=== PATIENT | female | born 1985 | race Caucasian/White ===

== ENCOUNTER 2020-03-06 16:12 | Emergency (ER) | payer OTHER, SELFPAY ==
--- NOTE | ~2020-03-06 | CT_ITS ---
EXAMINATION: CT abdomen pelvis w con DATE: 03/06/2020 17:40 INDICATION: Generalized abdominal pain. Nausea, vomiting and diarrhea. History of Crohn's. TECHNIQUE: Computed tomography (CT) of the abdomen and pelvis was performed with 100 cc Omnipaque 350 intravenous contrast. The dose-length product was 1164.66 mGy-cm. Automated exposure control and ite rative reconstruction technique were employed. COMPARISON: None. FINDINGS: Lung bases unremarkable. Heart size normal. No significant pleural or pericardial effusion. Status post cholecystectomy. The liver, spleen, pancreas, adrenal glands are unremarkable. There are nonobstructing bilateral renal stones. No hydronephrosis. Nonobstructive bowel gas pattern. No abnorm al pelvic masses or fluid collections. There is a urachal remnant of the bladder. Uterus is anteverte d. No significant vascular abnormality. No lymphadenopathy. There are surgical clips at the cecum, po ssibly from previous appendectomy. IMPRESSION: 1. No acute abdominal abnormality. 2: Nonobstructing bilateral nephrolithiasis. Reviewed, dictated and finalized at location A.
[2020-03-06 16:12] VITALS: BP 154/99; PULSE 90; RESP 18; TEMP 36.9; O2SAT 98
--- NOTE | 2020-03-06 16:29 | PC.NURSE ---
HOME MEDICATION LIST IS PATIENTS ESTIMATED DOSAGES
--- NOTE | 2020-03-06 16:34 | ED.ABDPAIN ---
HPI - Abdominal Pain General Chief Complaint: Nausea/Vomiting/Diarrhea Stated Complaint: abd pain, throwing up Time Seen by Provider: 03/06/20 16:34 Source: patient Mode of arrival: ambulatory Limitations: no limitations History of Present Illness HPI narrative: 34-year-old woman with a history of Crohn's disease comes in today complaining of right lower quadrant pain which has been present for the last week or 2. Patient states that in the last week she has been having intermittent vomiting and been able to keep stuff down only intermittently. Pain has gotten worse. She states that she is having bloody diarrhea and has rectal pain. She states that she has had chills and nausea. She denies dysuria, hematuria, fever, rash, syncope, in cough and cold symptoms. Her last exacerbation was approximately 6 months ago. She has been on ustekinumab and azathioprine for approximately 8 months. She states that she has been out of her azathioprine for the last 3 days. Her doctors are in the [place] area ( PCP and GI) and she has been contacting them for med refills. She does not a local doctor yet. MD elicited complaint: abdominal pain Onset (ago): week(s) (1-2) Pain Consistency: constant Location: RLQ Severity: severe Quality: sharp Radiation: none Migration to: no migration Exacerbating factors: eating and movement Relieving factors: nothing Associated symptoms: nausea, vomiting, diarrhea, chills and hematochezia Related Data Home Medications Medication Instructions Recorded Confirmed amlodipine 10 mg PO DAILY 03/06/20 03/06/20 azathioprine 50 mg PO DAILY 03/06/20 03/06/20 lisinopril 10 mg PO DAILY 03/06/20 03/06/20 omeprazole 40 mg PO DAILY 03/06/20 03/06/20 ustekinumab [Stelara] 45 mg SUBCUT ONCE 03/06/20 03/06/20 venlafaxine 150 mg PO DAILY 03/06/20 03/06/20 Allergies Allergy/AdvReac Type Severity Reaction Status Date / Time No Known Allergies Allergy Verified 03/06/20 16:25 Review of Systems Constitutional: Constitutional: Reports chills and Denies fever(s) Eyes: Eyes: Denies change in vision and Denies photophobia ENT: Denies dysphagia, Denies nasal congestion and Denies sore throat Cardiovascular: Cardiovascular: Denies chest pain and Denies radiating jaw, neck or arm pain Respiratory: Respiratory: Denies cough, Denies dyspnea and Denies wheezing Gastrointestinal: Gastrointestinal: Reports abdominal pain, Reports diarrhea, Reports nausea and Reports vomiting Genitourinary: Genitourinary: Denies hematuria, Denies nocturia and Denies dysuria Musculoskeletal: Musculoskeletal: Denies arthralgias and Denies joint swelling Integumentary/Breasts: Skin/Breast: Denies pruritus, Denies erythema and Denies rash Neurologic: Denies vertigo, Denies dizziness and Denies syncope Hematologic/Lymphatic: Hematologic/Lymphatic: Denies easy bleeding and Denies easy bruising Allergic/Immunologic: Allergic/Immunologic: Denies lip swelling, Denies throat swelling and Denies tongue swelling PMFSH Past Medical History Medical History COPD (chronic obstructive pulmonary disease) Crohn's disease Depression GERD (gastroesophageal reflux disease) Hemorrhoids PCOS (polycystic ovarian syndrome) Surgical History Surgical History H/O hemorrhoidectomy x2 H/O laparoscopy History of D&C S/P small bowel resection Social History Social History Smoking status: Current every day smoker Substance use: current Substance use type: marijuana Living arrangements: with family Exam Const: General: healthy appearing and alert Orientation/consciousness: patient oriented x3 Limitations: no limitations Other: moderate acute distress HENMT: Head: normal to inspection Ears: external ears normal, TM's normal bilaterally and EAC's normal Mouth: Yes moist m
[2020-03-06] MEDS: SODIUM CHLORIDE 0.9% IV 1,000 ML 999 ML IV CONT (16:55)
[2020-03-06] MEDS: HYDROmorphone HCL INJ (*CRX) 2 MG/ML VIAL 0.5 MG IV PUSH (16:59)
[2020-03-06] MEDS: ONDANSETRON INJ 4 MG/2 ML VIAL IV PUSH (17:00)
[2020-03-06 17:05] LABS: Basophils Absolute Auto 0.01 K/mm3 (0.00-0.10); Basophils Percent Auto 0.2 % (0.0-1.0); Eosinophils Percent Auto 1.8 % (1.0-6.0); Hematocrit 31.9 % (35.0-49.0); Hemoglobin 10.8 g/dL (12.0-15.0); Immature Granulocyte Absolute 0.02 K/mm3 (0.00-0.00); Immature Granulocyte Percent A 0.4 % (0.0-0.0); Lymphocytes Absolute Auto 0.88 K/mm3 (1.10-4.50); Lymphocytes Percent Auto 15.4 % (18.0-42.0); Mean Corpuscular HGB Conc 33.9 g/dL (32.0-36.0); Mean Corpuscular Hemoglobin 29.3 pg (27.0-31.0); Mean Corpuscular Volume 86.7 fL (78.0-102.0); Mean Platelet Volume 9.2 fl (9.2-11.8); Monocytes Absolute Auto 0.59 K/mm3 (0.10-0.90); Monocytes Percent Auto 10.3 % (2.0-11.0); Neutrophils Absolute Auto 4.1 K/mm3 (1.7-7.2); Neutrophils Percent Auto 71.9 % (50.0-70.0); Platelet Count Result 287 K/mm3 (150-420); Red Blood Count 3.68 M/mm3 (4.20-5.40); Red Cell Distribution Width 14.1 % (11.6-14.4); White Blood Count 5.7 K/mm3 (4.8-10.8)
[2020-03-06 17:06] LABS: Add Urine Microscopic? NO; Appearance Urine Clear (Clear); Bilirubin Urine Negative (Negative); Blood Urine Negative (Negative); Color Urine Yellow (Yellow); Glucose Urine UA Negative (Negative); Ketones Urine Negative (Negative); Leukocyte Esterase Ur Negative LEU/UL (Negative); Nitrate Urine Negative (Negative); Protein Urine Negative (Negative); Specific Grav Ur 1.025 (1.010-1.020); Urobilinogen Urine 0.2 mg/dL (0.2-1.0)
[2020-03-06 17:16] LABS: Pregnancy On Board Control Positive; Urine Pregnancy Test Negative
[2020-03-06 17:17] LABS: Alanine Aminotransferase 24 U/L (14-59); Albumin Level 3.8 g/dL (3.4-5.0); Alkaline Phosphatase 128 U/L (46-116); Anion Gap 11 mmol/L (8-16); Aspartate Amino Transferase 10 U/L (15-37); Bilirubin,Total 0.7 mg/dL (0.00-1.00); Blood Urea Nitrogen 9 mg/dL (7-18); Calcium 9.2 mg/dL (8.5-10.1); Carbon Dioxide 24 mmol/L (21-32); Chloride 105 mmol/L (98-108); Estimated CRCL calculation 87 ml/min; Estimated Glomerular Filt Rate > 60; Glucose 101 mg/dL (70-99); Lipase 124 U/L (73-393); Osmolality Calculated 288 mOsm/kg (285-295); Potassium 3.8 mmol/L (3.5-5.1); Sodium 140 mmol/L (136-145); Total Protein 7.5 g/dL (6.4-8.2)
[2020-03-06 17:22] LABS: Lactic Acid Reflex 1.2 mmol/L (0.4-2.0)
[2020-03-06 17:58] LABS: CRP < 0.5 mg/dL (0.0-0.9)
[2020-03-06] MEDS: methylPREDNISolone SOD SUCC 40 MG VIAL 80 MG IV PUSH (18:12)
[2020-03-06 18:19] VITALS: BP 146/88; PULSE 77; RESP 14; O2SAT 100
== END 2020-03-06 18:30 | disposition home or self-care (01) ==
PROVIDERS: Emergency Provider Emergency Medicine
DX: K50.90 Crohn's disease, unspecified, without complications (principal)
CPT/HCPCS: 36415; 74177; 80053; 81003; 81025; 83605; 83690; 85025; 86140; 87040; 96361; 96374; 96375; 99283; 99284; J1170; J2405; J2920; J7030; Q9965

== ENCOUNTER 2020-04-23 14:15 | Emergency (ER) | payer OTHER, SELFPAY ==
[2020-04-23 14:24] VITALS: BP 138/97; PULSE 65; RESP 14; TEMP 36.4; O2SAT 100
--- NOTE | 2020-04-23 14:27 | ED.PSYCH ---
HPI - Psych General Chief Complaint: Psychiatric Symptoms Stated Complaint: needs elval per dr Source: patient and RN notes reviewed Mode of arrival: ambulatory Limitations: no limitations History of Present Illness HPI Narrative: Patient sent over from primary care physician for suicidal ideation. MD complaint: suicidal ideation and feels depressed Onset (ago): month(s) (2) Duration: intermittent and getting worse History of same: Yes Relieving factors: none Exacerbating factors: none Context: significant life stressor Associated psychiatric symptoms: depression and suicidal ideation Associated symptoms: denies other symptoms Treatments prior to arrival: none If self harm: admits thoughts of self harm Related Data Home Medications Medication Instructions Recorded Confirmed lisinopril 10 mg PO DAILY 03/06/20 04/23/20 ustekinumab [Stelara] 45 mg SUBCUT ONCE 03/06/20 04/23/20 venlafaxine 150 mg PO DAILY 03/06/20 04/23/20 famotidine 40 mg PO DAILY 04/23/20 04/23/20 verapamil 120 mg PO HS 04/23/20 04/23/20 Allergies Allergy/AdvReac Type Severity Reaction Status Date / Time No Known Allergies Allergy Verified 03/06/20 16:25 Review of Systems Review of Systems: All systems reviewed & are unremarkable except as noted in HPI and below PMFSH Past Medical History Medical History COPD (chronic obstructive pulmonary disease) Crohn's disease Depression GERD (gastroesophageal reflux disease) Hemorrhoids PCOS (polycystic ovarian syndrome) Surgical History Surgical History H/O hemorrhoidectomy x2 H/O laparoscopy History of D&C S/P small bowel resection Social History Social History Smoking status: Current every day smoker Substance use: current Substance use type: marijuana Exam Const: General: healthy appearing and no acute distress Nutritional Appearance: well nourished and obese Orientation/consciousness: patient oriented x3 Other: Female nurse in room during examination. HENMT: Head: normal to inspection Ears: external ears normal Eyes: Conjunctivae: conjunctivae normal Pupils: Equal, round and reactive pupils present EOM: EOMs intact bilaterally Neck: Neck: normal visual inspection Resp: Effort & Inspection: normal respiratory effort Auscultation: clear to auscultation bilaterally Cardio: Rate: regular rate Rhythm: regular rhythm GI: GI Palp: Yes Soft to palpation and No Tenderness to palpation present (GI) Auscultation: normal bowel sounds Back/Spine/Pelvis: Cervical Spine: cervical ROM normal Thoracic/Lumbar Spine: thoraco-lumbar ROM normal Skin: General skin exam: normal color Rashes: no rashes Neuro: General: patient oriented x3, moves all extremities and no focal motor deficits Speech: normal speech Gait exam (Neuro): Normal gait present Extrem: General: normal to inspection and no clubbing, cyanosis or edema Psych: Appearance: grossly normal and well kempt Affect: Sad affect present Thought content: Yes Normal thought content present Course Course Emergency Course: Patient is medically cleared for transfer and admission to a psychiatric facility. Vital Signs Vital signs: Vital Signs Temperature 36.4 C L 04/23/20 14:24 Pulse Rate 65 04/23/20 14:24 Respiratory Rate 14 04/23/20 14:24 Blood Pressure 138/97 H 04/23/20 14:24 Pulse Oximetry 100 04/23/20 14:24 Temperature 36.4 C L 04/23/20 14:24 Pulse Rate 77 04/23/20 16:56 Respiratory Rate 14 04/23/20 16:56 Blood Pressure 122/80 04/23/20 16:56 Pulse Oximetry 99 04/23/20 16:56 MDM - Psych Lab Data Attestation: I reviewed the patient's lab results. Result diagrams: 04/23/20 14:44 04/23/20 14:44 Labs: Lab Results 04/23/20 04/23/20 04/23/20 Range/Units 14:44 14:44 15:50 WBC 7.2 (4.8-
[2020-04-23 14:50] LABS: Basophils Absolute Auto 0.01 K/mm3 (0.00-0.10); Basophils Percent Auto 0.1 % (0.0-1.0); Eosinophils Absolute Auto 0.06 K/mm3 (0.02-0.50); Eosinophils Percent Auto 0.8 % (1.0-6.0); Hematocrit 33.2 % (35.0-49.0); Hemoglobin 10.8 g/dL (12.0-15.0); Immature Granulocyte Absolute 0.05 K/mm3 (0.00-0.00); Immature Granulocyte Percent A 0.7 % (0.0-0.0); Lymphocytes Percent Auto 15.4 % (18.0-42.0); Mean Corpuscular HGB Conc 32.5 g/dL (32.0-36.0); Mean Corpuscular Hemoglobin 27.5 pg (27.0-31.0); Mean Corpuscular Volume 84.5 fL (78.0-102.0); Mean Platelet Volume 9.3 fl (9.2-11.8); Monocytes Absolute Auto 0.81 K/mm3 (0.10-0.90); Monocytes Percent Auto 11.3 % (2.0-11.0); Neutrophils Absolute Auto 5.1 K/mm3 (1.7-7.2); Neutrophils Percent Auto 71.7 % (50.0-70.0); Platelet Count Result 337 K/mm3 (150-420); Red Blood Count 3.93 M/mm3 (4.20-5.40); Red Cell Distribution Width 13.8 % (11.6-14.4); White Blood Count 7.2 K/mm3 (4.8-10.8)
--- NOTE | 2020-04-23 15:11 | ECG_ITS ---
Measurements Intervals [place] Rate: 62 P: 29 OR: 120 QRS: 34 QRSD: 89 T: 17 QT: 457 QTc: 466 Interpretive Statements SINUS RHYTHM EARLY PRECORDIAL R/S TRANSITION NONSPECIFIC T-WAVE ABNORMALITY- INFERIOR LEADS BORDERLINE ECG Electronically Signed On 04-23-2020 16:02:13 CROP SCOUT by Miguel Redd D.O.
[2020-04-23 15:15] LABS: Acetaminophen 2 ug/mL (10-30); Alanine Aminotransferase 21 U/L (14-59); Albumin Level 3.8 g/dL (3.4-5.0); Alkaline Phosphatase 115 U/L (46-116); Anion Gap 11 mmol/L (8-16); Aspartate Amino Transferase 11 U/L (15-37); Bilirubin,Total 0.5 mg/dL (0.00-1.00); Blood Urea Nitrogen 10 mg/dL (7-18); Calcium 9.1 mg/dL (8.5-10.1); Carbon Dioxide 26 mmol/L (21-32); Chloride 103 mmol/L (98-108); Estimated CRCL calculation 78 ml/min; Estimated Glomerular Filt Rate > 60; Ethanol < 3 mg/dL (0-6); Glucose 88 mg/dL (70-99); Osmolality Calculated 288 mOsm/kg (285-295); Potassium 3.2 mmol/L (3.5-5.1); Salicylate 10.5 mg/dL (2.8-20.0); Sodium 140 mmol/L (136-145); Thyroid Stimulating Hormone 0.62 uIU/mL (0.36-3.74); Total Protein 8.1 g/dL (6.4-8.2)
--- NOTE | 2020-04-23 15:19 | PC.NURSE ---
1500 [facility], CONTACTED AT THIS TIME
[2020-04-23] MEDS: POTASSIUM BICARBONATE 25 MEQ TABEF 50 MEQ PO (15:49)
[2020-04-23 16:08] LABS: Add Urine Microscopic? NO; Appearance Urine Clear (Clear); Bilirubin Urine Negative (Negative); Blood Urine Negative (Negative); Color Urine Yellow (Yellow); Glucose Urine UA Negative (Negative); Ketones Urine Negative (Negative); Leukocyte Esterase Ur Negative LEU/UL (Negative); Nitrate Urine Negative (Negative); Protein Urine Negative (Negative); Urobilinogen Urine 0.2 mg/dL (0.2-1.0)
[2020-04-23 16:09] LABS: Amphetamine Screen Urine Negative (Negative); Barbiturate Screen Urine Negative (Negative); Benzodiazepines Screen Urine Negative (Negative); Cannabinoid Screen Urine Positive (Negative); Cocaine Screen Urine Negative (Negative); Methadone Screen Urine Negative (Negative); Opiate Screen Urine Positive (Negative); Phencyclidine Screen Urine Negative (Negative)
[2020-04-23 16:56] VITALS: BP 122/80; PULSE 77; RESP 14; O2SAT 99
--- NOTE | 2020-04-23 22:29 | PC.NURSE ---
REPORT PROVIDED TO SANDER KEARNEY
--- NOTE | 2020-04-23 22:42 | PC.NURSE ---
Assumed care of pt at this time. 1:1 staff sitter at bedside. Pt resting comfortably in bed.
[2020-04-23 23:14] LABS: SARS-CoV-2 Ag Negative (Negative)
--- NOTE | 2020-04-24 00:14 | PC.NURSE ---
0014-Patient is resting at this time, patient is in the direct view of sitter.
[2020-04-24 00:34] VITALS: BP 139/95; PULSE 88; RESP 18; TEMP 37.2; O2SAT 99
--- NOTE | 2020-04-24 03:02 | PC.NURSE ---
Report received, pt. sleeping, sitter at side and monitor on in view.
--- NOTE | 2020-04-24 04:15 | PC.NURSE ---
Sal from the [facility] called back for nurse report. Report given and he stated will address intake Dr. at 0700 and call back c bed if accepted. Pt. sleeping at this time and in view of nurses station c monitor on.
[2020-04-24 05:19] VITALS: BP 142/97; PULSE 66; RESP 16; TEMP 36.8; O2SAT 99
--- NOTE | 2020-04-24 05:59 | PC.NURSE ---
Pt. sleeping, continuing to monitor c close observation.
[2020-04-24 11:33] VITALS: RESP 18
== END 2020-04-24 11:36 ==
PROVIDERS: Emergency Provider Emergency Medicine; PCP Internal Medicine
DX: F33.2 Major depressive disorder, recurrent severe without psychotic features (principal)
CPT/HCPCS: 36415; 80053; 80307; 81003; 84443; 85025; 87426; 93005; 99285; A9270

== ENCOUNTER 2020-06-13 08:06 | Outpatient (CLI) | payer OTHER, SELFPAY ==
--- NOTE | ~2020-06-13 | CT_ITS ---
EXAMINATION: CT abdomen pelvis w con DATE: 06/13/2020 08:59 INDICATION: Right lower quadrant abdominal, rectal pain. History of Crohn's disease. TECHNIQUE: Computed tomography (CT) of the abdomen and pelvis was performed with 100 cc Omnipaque 350 intravenous contrast. Automated exposure control and iterative reconstruction technique were employe d. Exam dose: 1056.29 mGy-cm total exam DLP. COMPARISON: 03/06/2020 CT abdomen pelvis FINDINGS: The lung bases are clear of infiltrate or consolidation. Normal heart size. No pericardial or pleural effusion. Status post cholecystectomy. No bile duct or pancreatic duct dilatation. No hepatic or pancreatic spa ce-occupying mass lesion or pancreatic calcification. Normal splenic size. Normal morphology of the adrenal glands. 3 mm nonobstructing mid right renal calculus. 3 mm nonobstructing mid left renal calculus. 4 mm probable cyst of the lower pole of the left kidney. No suspicious space-occupying mass lesion of either kidney is evident. No ureteral calculus or hydroureteronephrosis. Normal caliber of the abdominal aorta. No intraperitoneal or retroperitoneal or pelvic mass lesion or adenopathy or ascites. Thin-walled 2.5 cm left ovarian cyst. The uterus and adnexal areas are otherwise unremarkable. The ur inary bladder appears normal. No bowel obstruction, bowel wall thickening, pneumatosis or intraperitoneal free air. Status post etelvina endectomy. Mild likely chronic compression fracture of the superior vertebral endplate of T8. No suspicious osteoblastic or osteolytic lesions. IMPRESSION: Status post cholecystectomy Status post appendectomy 3 mm nonobstructing calculus of mid right kidney and mid left kidney 2.5 cm left ovarian cyst Reviewed, dictated and finalized at Location [facility]. Reviewed, dictated and finalized at location A. RNET NETWORK SPECIALIST
[2020-06-13 08:26] LABS: Estimated Glomerular Filt Rate > 60
== END 2020-06-13 08:07 | disposition home or self-care (01) ==
PROVIDERS: PCP Internal Medicine; Visit Provider Internal Medicine
DX: K50.90 Crohn's disease, unspecified, without complications (principal); R10.9 Unspecified abdominal pain
CPT/HCPCS: 36415; 74177; Q9967

== ENCOUNTER 2021-03-22 09:46 | Outpatient (CLI) | payer MEDICARE, MEDICAID, SELFPAY ==
--- NOTE | ~2021-03-22 | XR_ITS ---
XR elbow LT min 3V 03/22/2021 10:16 INDICATION: Left elbow pain PROCEDURE: 4 views left elbow COMPARISON: No prior studies for comparison. FINDINGS: Fracture, dislocation or subluxation is not identified. No significant joint effusion. The soft tissues appear within normal limits. No foreign bodies are identified. IMPRESSION: 1: NO ACUTE BONE OR JOINT ABNORMALITY IDENTIFIED. Reviewed, dictated and finalized at location A. GE MAKER
--- NOTE | ~2021-03-22 | XR_ITS ---
XR_[id number] 03/22/2021 10:16 Indication: Neck pain. Left forearm numbness. Procedure: 4 views cervical spine Comparison: No prior studies for comparison. Findings: Vertebral body heights are maintained. No significant disc narrowing. No prevertebral soft tissue swelling. Odontoid process within normal limits. Lateral masses are normally aligned. Lung api tricia are normal. Impression: 1: No significant abnormality of the cervical spine. Reviewed, dictated and finalized at location A. NG CUTTING MACHINE OPERATOR Impression: 1: No significant abnormality of the cervical spine.
== END 2021-03-22 09:47 | disposition home or self-care (01) ==
LOC: CHSIMG 09:48
PROVIDERS: PCP Internal Medicine; Visit Provider Internal Medicine
DX: R20.0 Anesthesia of skin (principal); M25.522 Pain in left elbow
CPT/HCPCS: 72040; 73080

== ENCOUNTER 2021-07-23 12:15 | Outpatient (CLI) | payer MEDICARE, SELFPAY ==
--- NOTE | ~2021-07-23 | XR_ITS ---
EXAMINATION: XR chest 2V DATE: 07/23/2021 12:37 INDICATION: Dorsal breath. Tobacco use. TECHNIQUE: PA and lateral views of the chest were obtained. COMPARISON: None FINDINGS: The lungs are clear with no focal airspace opacities, pulmonary edema, pleural effusion or pneumothor ax. The cardiomediastinal silhouette is normal. Mild thoracic spondylosis. Cholecystectomy clips in t he upper abdomen. IMPRESSION: 1. No acute cardiopulmonary disease. Reviewed, dictated and finalized at location A.
[2021-07-23 12:33] LABS: Basophils Absolute Auto 0.02 K/mm3 (0.00-0.10); Basophils Percent Auto 0.3 % (0.0-1.0); Eosinophils Absolute Auto 0.18 K/mm3 (0.02-0.50); Eosinophils Percent Auto 3.1 % (1.0-6.0); Hemoglobin 11.6 g/dL (12.0-15.0); Immature Granulocyte Absolute 0.02 K/mm3 (0.00-0.00); Immature Granulocyte Percent A 0.3 % (0.0-0.0); Lymphocytes Absolute Auto 1.15 K/mm3 (1.10-4.50); Lymphocytes Percent Auto 19.5 % (18.0-42.0); Mean Corpuscular HGB Conc 33.1 g/dL (32.0-36.0); Mean Corpuscular Hemoglobin 28.4 pg (27.0-31.0); Mean Corpuscular Volume 85.6 fL (78.0-102.0); Mean Platelet Volume 9.3 fl (9.2-11.8); Monocytes Absolute Auto 0.41 K/mm3 (0.10-0.90); Neutrophils Absolute Auto 4.1 K/mm3 (1.7-7.2); Neutrophils Percent Auto 69.8 % (50.0-70.0); Platelet Count Result 309 K/mm3 (150-420); Red Blood Count 4.09 M/mm3 (4.20-5.40); Red Cell Distribution Width 14.9 % (11.6-14.4); White Blood Count 5.9 K/mm3 (4.8-10.8)
[2021-07-23 12:44] LABS: D Dimer 0.41 mg/L (0.19-0.50)
[2021-07-23 13:14] LABS: Alanine Aminotransferase 25 U/L (14-59); Albumin Level 3.4 g/dL (3.4-5.0); Alkaline Phosphatase 99 U/L (46-116); Anion Gap 10 mmol/L (8-16); Aspartate Amino Transferase 18 U/L (15-37); Bilirubin,Total 0.7 mg/dL (0.00-1.00); Blood Urea Nitrogen 10 mg/dL (7-18); Calcium 8.6 mg/dL (8.5-10.1); Carbon Dioxide 25 mmol/L (21-32); Chloride 105 mmol/L (98-108); Creatine Kinase 41 U/L (26-192); Estimated Glomerular Filt Rate > 60; Glucose 83 mg/dL (70-99); Osmolality Calculated 288 mOsm/kg (285-295); Potassium 3.7 mmol/L (3.5-5.1); Sodium 140 mmol/L (136-145); Thyroid Stimulating Hormone 2.12 uIU/mL (0.36-3.74); Total Protein 7.1 g/dL (6.4-8.2); Troponin I 5.8 ng/L (0.00-60.4)
[2021-07-23 14:53] LABS: Ferritin 27 ng/mL (8-252); Iron 69 ug/dL (50-170); Percent Iron Saturation 16 % (12-57)
== END 2021-07-23 12:16 | disposition home or self-care (01) ==
LOC: CHSLAB 12:19
PROVIDERS: PCP Internal Medicine; Visit Provider Nurse Practitioner Family
DX: R06.02 Shortness of breath (principal); F17.200 Nicotine dependence, unspecified, uncomplicated; D64.9 Anemia, unspecified
CPT/HCPCS: 36415; 71046; 80053; 82550; 82553; 82728; 83540; 83550; 84443; 84484; 85025; 85380

== ENCOUNTER 2021-08-08 09:16 | Outpatient (CLI) | payer MEDICARE, MEDICAID, SELFPAY | END 2021-08-08 09:17 | disposition home or self-care (01) | LOC: CHSCARD 09:18 | PROVIDERS: PCP Internal Medicine; Visit Provider Nurse Practitioner Family | DX: R06.02 Shortness of breath (principal) | CPT/HCPCS: 94060; 94726; 94729 ==

== ENCOUNTER 2021-08-22 11:33 | Outpatient (CLI) | payer MEDICARE, MEDICAID, SELFPAY ==
--- NOTE | ~2021-08-22 | XR_ITS ---
EXAMINATION: XR foot LT min 3V DATE: 08/22/2021 12:02 INDICATION: Left foot pain and swelling TECHNIQUE: Dorsoplantar, lateral, and 2 oblique views of the left foot were obtained. COMPARISON: None. FINDINGS: There is no fracture, dislocation, or subluxation. A plantar calcaneal enthesophyte is note d. The bones, soft tissues, and joint spaces are otherwise normal. IMPRESSION: 1. No acute osseous abnormality. Reviewed, dictated and finalized at location A.
--- NOTE | ~2021-08-22 | US_ITS ---
EXAMINATION: US venous doppler LE EXAM DATE: 08/22/2021 14:45 INDICATION: elevated D Dimer/swelling lower extremity . TECHNIQUE: Multiple grayscale, color flow and Doppler images of the lower extremity deep venous syste ms bilaterally were obtained and reviewed. There is no prior study for comparison. FINDINGS: Right side: The right common femoral, femoral and profunda veins demonstrate normal color flow, respi ratory variation, augmentation and compressibility. Compressibility, color flow confirmed within the right popliteal, posterior tibial, peroneal, and greater saphenous veins. Left side: The left common femoral, femoral and profunda veins demonstrate normal color flow, respira tory variation, augmentation and compressibility. Compressibility, color flow confirmed within the l eft popliteal, posterior tibial, peroneal, and greater saphenous veins. IMPRESSION: No lower extremity deep venous thrombosis bilaterally. Reviewed, dictated and finalized at location B.
--- NOTE | ~2021-08-22 | XR_ITS ---
EXAMINATION: XR foot RT min 3V DATE: 08/22/2021 12:01 INDICATION: Right foot pain and swelling TECHNIQUE: Dorsoplantar, lateral, and 2 oblique views of the right foot were obtained. COMPARISON: None. FINDINGS: There is no fracture, dislocation, or subluxation. A plantar calcaneal enthesophyte is note d. The bones and joint spaces are otherwise normal. There is mild dorsal soft tissue swelling of the foot. IMPRESSION: 1. Mild soft tissue swelling of the foot without acute osseous abnormality. Reviewed, dictated and finalized at location A.
[2021-08-22 11:50] LABS: Basophils Absolute Auto 0.01 K/mm3 (0.00-0.10); Basophils Percent Auto 0.2 % (0.0-1.0); Eosinophils Absolute Auto 0.13 K/mm3 (0.02-0.50); Eosinophils Percent Auto 2.8 % (1.0-6.0); Hematocrit 31.5 % (35.0-49.0); Hemoglobin 10.5 g/dL (12.0-15.0); Immature Granulocyte Absolute 0.02 K/mm3 (0.00-0.00); Immature Granulocyte Percent A 0.4 % (0.0-0.0); Lymphocytes Absolute Auto 0.64 K/mm3 (1.10-4.50); Mean Corpuscular HGB Conc 33.3 g/dL (32.0-36.0); Mean Platelet Volume 9.4 fl (9.2-11.8); Monocytes Absolute Auto 0.44 K/mm3 (0.10-0.90); Monocytes Percent Auto 9.6 % (2.0-11.0); Neutrophils Absolute Auto 3.3 K/mm3 (1.7-7.2); Platelet Count Result 248 K/mm3 (150-420); Red Blood Count 3.62 M/mm3 (4.20-5.40); Red Cell Distribution Width 15.3 % (11.6-14.4); White Blood Count 4.6 K/mm3 (4.8-10.8)
[2021-08-22 11:52] LABS: Appearance Urine Clear (Clear); Bilirubin Urine Negative (Negative); Color Urine Light Yellow (Yellow); Glucose Urine UA Negative (Negative); Ketones Urine Negative (Negative); Leukocyte Esterase Ur Negative (Negative); Nitrate Urine Negative (Negative); Protein Urine Negative (Negative); Specific Grav Ur 1.015 (1.010-1.020); Urobilinogen Urine 0.2 mg/dL (0.2-1.0); pH Urine 5.5 (5.0-8.0)
[2021-08-22 11:58] LABS: Add Urine Microscopic? YES; Bacteria Urine 1+ /hpf; Blood Urine Trace-Intact (Negative); RBC Urine 0-2 /hpf (0-2); Squamous Epithelial Cell Urine Few /hpf (Few); WBC Urine None seen /hpf (0-3)
[2021-08-22 12:08] LABS: D Dimer 0.61 mg/L (0.19-0.50)
[2021-08-22 12:28] LABS: Alanine Aminotransferase 24 U/L (14-59); Albumin Level 3.1 g/dL (3.4-5.0); Alkaline Phosphatase 121 U/L (46-116); Anion Gap 7 mmol/L (8-16); Aspartate Amino Transferase 19 U/L (15-37); Bilirubin,Total 0.5 mg/dL (0.00-1.00); Blood Urea Nitrogen 10 mg/dL (7-18); CRP < 0.5 mg/dL (0.0-0.9); Calcium 8.4 mg/dL (8.5-10.1); Carbon Dioxide 29 mmol/L (21-32); Chloride 104 mmol/L (98-108); Estimated Glomerular Filt Rate > 60; Glucose 108 mg/dL (70-99); NT Pro B Type Natriuretic Pept 111 pg/mL (0-125); Osmolality Calculated 290 mOsm/kg (285-295); Potassium 4.3 mmol/L (3.5-5.1); Sodium 140 mmol/L (136-145); Total Protein 6.4 g/dL (6.4-8.2)
== END 2021-08-22 11:34 | disposition home or self-care (01) ==
PROVIDERS: PCP Internal Medicine; Visit Provider Internal Medicine
DX: M79.89 Other specified soft tissue disorders (principal); R79.1 Abnormal coagulation profile; R60.9 Edema, unspecified; R06.00 Dyspnea, unspecified; M79.673 Pain in unspecified foot
CPT/HCPCS: 36415; 73630; 80053; 81001; 83880; 85025; 85380; 86140; 93970

== ENCOUNTER 2025-02-28 13:18 | Emergency (ER) | payer MEDICARE, MEDICAID, SELFPAY ==
[2025-02-28] VITALS (15 sets, daily range): BP systolic 145–179; BP diastolic 101–144; PULSE 74–110; RESP 18–24; TEMP 36.2; O2SAT 96–100
--- NOTE | ~2025-02-28 | XR_ITS ---
Examination: XR chest 2V Clinical History: SOB Comparison: 07/23/2021 Technique: PA and Lateral Findings: Cardiomediastinal silhouette normal size and configuration. Lungs clear. No acute bony abnormality. IMPRESSION: 1. No acute cardiopulmonary findings. Reviewed, dictated and finalized at location R.
--- NOTE | 2025-02-28 13:25 | ED.SOB ---
HPI - SOB/Dyspnea General Chief Complaint: Shortness of Breath/Dyspnea Stated Complaint: shortness of breath ; STI exposure Time Seen by Provider: 02/28/25 13:24 Source: patient Mode of arrival: ambulatory Limitations: no limitations History of Present Illness HPI Narrative: Patient is a 39-year-old female homeless with shortness of breath and light vaginal blood on toilet paper with known STD exposure recently but unknown which disease. She is having chest pressure and tightness across the upper chest into the back more so regularly then just with this episode of illness. Patient has known COPD. She is off all her blood pressure medicine at this time with noncompliance. Patient has Crohn's disease. Her father at 40 with cardiomyopathy. MD elicited complaint: shortness of breath, cough, pain with inspiration and chest pain Pertinent past history: COPD Onset (ago): week(s) (1) Context: other (Patient has shortness of breath/COPD and vaginal complaint all over the past week with exposure to STD) Timing: constant Severity: moderate Exacerbating factors: exertion and coughing Relieving factors: bronchodilators Known history of: COPD Associated symptoms: chest pain, pain with inspiration, fever, cough and sputum production Treatment prior to arrival: bronchodilator Related Data Home oxygen amount: none Home Medications ?Medication ?Instructions ?Recorded ?Confirmed ?Last Taken ?Type lisinopril 10 mg tablet 10 mg PO DAILY 03/06/20 04/23/20 Unknown History ustekinumab 45 mg/0.5 mL 45 mg subcut ONCE 03/06/20 04/23/20 02/20/20 History subcutaneous solution (Stelara) venlafaxine 75 mg tablet 150 mg PO DAILY 03/06/20 04/23/20 Unknown History famotidine 40 mg tablet 40 mg PO DAILY 04/23/20 04/23/20 Unknown History verapamil 120 mg tablet,extended 120 mg PO HS 04/23/20 04/23/20 Unknown History release Allergies Allergy/AdvReac Type Severity Reaction Status Date / Time No Known Allergies Allergy Verified 02/28/25 13:35 Review of Systems Review of Systems: All systems reviewed & are unremarkable except as noted in HPI and below Constitutional: Constitutional: Reports no additional constitutional complaints Eyes: Eyes: Reports no additional eye complaints ENT: Reports system reviewed and no additional complaints, except as documented Cardiovascular: Cardiovascular: Reports no additional cardiovascular complaints Respiratory: Respiratory: Reports no additional respiratory complaints Gastrointestinal: Gastrointestinal: Reports no additional gastrointestinal complaints Genitourinary: Genitourinary: Reports no additional female genitourinary complaints Musculoskeletal: Musculoskeletal: Reports no additional musculoskeletal complaints Integumentary/Breasts: Skin/Breast: Reports system reviewed and no additional complaints, except as docu Neurologic: Reports system reviewed and no additional complaints, except as documented Psychiatric: Psychiatric: Reports no additional psychiatric complaints Endocrine: Endocrine: Reports no additional endocrine complaints Hematologic/Lymphatic: Hematologic/Lymphatic: Reports no additional hematologic/lymphatic complaints Allergic/Immunologic: Allergic/Immunologic: Reports no additional allergic/immunologic complaints PMFSH Past Medical History Medical History Depression PCOS (polycystic ovarian syndrome) Hemorrhoids COPD (chronic obstructive pulmonary disease) GERD (gastroesophageal reflux disease) Crohn's disease Surgical History Surgical History History of D&C H/O hemorrhoidectomy x2 S/P small bowel resection H/O laparoscopy Social History Social History Smoking status: Current every day smoker Substance use: current Substance use type: marijuana Living arrangements: with family Exam Const: General: ill appearing Nutritional Appearance: well nourished Orientation/consciousness: patient oriented x3 Limitations: no limitations HENMT: Head: normal to inspection Ears: external ears normal Face/Nose/Sinus: Normal external nose present Eyes: Conjunctivae: conjunctivae normal Pupils: Equal, round and reactive pupils present EOM: EOMs intact bilaterally Neck: Neck: normal visual inspection Chest: Chest palpation & inspection: normal inspection of the chest Resp: Effort & Inspection: normal respiratory effort, not labored, no retractions, tachypneic and no use of accessory muscles Auscultation: clear to auscultation bilaterally, no crackles, no rales, rhonchi, no wheezes, breath sounds present and diminished lung sounds Cardio: Rate: regular rate Rhythm: regular rhythm Heart sounds: no murmurs GI: Inspection: non-distended GI Palp: Yes Soft to palpation and No Tenderness to palpation present (GI) Auscultation: normal bowel sounds : General: Yes bladder normal to palpation Back/Spine/Pelvis: Back: no CVA tenderness Skin: General skin exam: normal color Rashes: no rashes Wounds: no wounds Neuro: General: patient oriented x3, moves all extremities and no meningeal signs Extrem: General: normal to inspection, no clubbing, cyanosis or edema and no pedal edema Psych: Mental Status: mental status grossly normal Affect: normal affect Attitude: cooperative Course Vital Signs Vital signs: Vital Signs Temperature 36.2 C L 02/28/25 13:18 Pulse Rate 110 H 02/28/25 13:18 Respiratory Rate 20 02/28/25 13:18 Blood Pressure 159/113 H 02/28/25 13:18 Pulse Oximetry 100 02/28/25 13:18 Oxygen Delivery Room Air 02/28/25 13:18 Temperature 36.2 C L 02/28/25 13:18 Pulse Rate 95 02/28/25 14:22 Respiratory Rate 20 02/28/25 14:22 Blood Pressure 150/101 H 02/28/25 14:15 Pulse Oximetry 100 02/28/25 14:22 Oxygen Delivery Room Air 02/28/25 14:15 Oxygen Flow Rate 0 02/28/25 14:22 MDM - SOB/Dyspnea MDM Narrative Medical decision making narrative: Patient is a 39-year-old female with shortness of breath and chest pain for the past week and also concern for STD. We will do a cardiopulmonary workup at this time. We will also check STDs. Patient will transfer higher level medical care due to elevated troponin with chest pain as well as shortness of breath and elevated BNP. Lab Data Attestation: I reviewed the patient's lab results. 02/28/25 14:15 02/28/25 14:15 Labs: Lab Results 02/28/25 02/28/25 Range/Units 13:47 14:15 WBC 8.7 (4.8-10.8) K/mm3 RBC 4.85 (4.20-5.40) M/mm3 Hgb 9.2 L (12.0-15.0) g/dL Hct 32.6 L (35.0-49.0) % MCV 67.2 L (78.0-102.0) fL MCH 19.0 L (27.0-31.0) pg MCHC 28.2 L (32-36) g/dL RDW 17.3 H (11.6-14.4) % Plt Count 310 (150-420) K/mm3 MPV 9.7 (9.2-11.8) fl Immature Gran % (Auto) 0.5 H (0.0-0.0) % Neut % (Auto) 74.2 H (50.0-70.0) % Lymph % (Auto) 16.3 L (18.0-42.0) % [place] % (Auto) 6.8 (2.0-11.0) % Eos % (Auto) 1.6 (1.0-6.0) % Baso % (Auto) 0.6 (0.0-1.0) % Lymph # (Auto) 1.42 (1.10-4.50) K/mm3 [place] # (Auto) 0.59 (0.10-0.90) K/mm3 Eos # (Auto) 0.14 (0.02-0.50) K/mm3 Baso # (Auto) 0.05 (0.00-0.10) K/mm3 Abs Immat Gran (auto) 0.04 H (0.00-0.00) K/mm3 Absolute Neuts (auto) 6.45 (1.70-7.20) K/mm3 Absolute Nucleated RBC 0.00 (0.00-0.00) K/mm3 Nucleated RBC % 0.0 (0-0.0) % D-Dimer Pending Sodium 142 (137-145) mmol/L Potassium 4.0 (3.4-5.0) mmol/L Chloride 107 (98-107) mmol/L Carbon Dioxide 28 (22-30) mmol/L Anion Gap 7 (4-12) mmol/L BUN 9 (7-17) mg/dL Creatinine 0.85 (0.7-1.0) mg/dL Estim Creat Clear Calc 87 ml/min Estimated GFR > 60 (59 - ) Glucose 115 H (65-110) mg/dL Calculated Osmolality 293 (285-295) mOsm/kg Calcium 9.1 (8.4-10.2) mg/dL Total Bilirubin 1.1 (0.2-1.3) mg/dL AST 23 (14-36) U/L ALT 17 (6-35) U/L Alkaline Phosphatase 102 (38-126) U/L Troponin I 0.037 H* (0.000-0.034) ng/mL NT-Pro-B Natriuret Pep 5280 H (19.9-100) pg/mL Total Protein 8.2 (6.3-8.2) g/dL Albumin 3.8 (3.5-5.1) g/dL CSF HIV-1 p24 Ag Scrn Pending HIV 1&2 Antibody Rapid Pending Influenza A (RT-PCR) Negative (Negative) Influenza B (RT-PCR) Negative (Negative) RSV (RT-PCR) Negative (Negative) SARS-CoV-2 RNA (RT-PCR) Negative (Negative) Known anemia Imaging Data Attestation: I personally reviewed and interpreted this imaging study as follows: Radiologist's impression: Chest x-ray is negative for acute process ECG Data EKG #1: Attestation: I personally reviewed and interpreted this ECG as follows: ECG completion date: 02/28/25 ECG completion time: 14:04 EKG Interpretation: normal rate, sinus rhythm, no ectopy, non-specific ST changes, normal QRS, prolonged QT and NL axis Discharge Plan Discharge Clinical Impression: Elevated troponin Acute exacerbation of CHF (congestive heart failure) Qualifiers: Heart failure type: unspecified Qualified Code(s): I50.9 - Heart failure, unspecified Patient Disposition: Acute Care Hospital Condition: Stable Patient Language: Persian Prescriptions: No Action venlafaxine 75 mg Tablet 150 mg PO DAILY lisinopril 10 mg Tablet 10 mg PO DAILY Stelara 45 mg/0.5 mL Solution 45 mg SUBCUT ONCE Rx Instructions: every 8 weeks verapamil 120 mg tablet extended release 120 mg PO HS famotidine 40 mg tablet 40 mg PO DAILY Follow-up/Referrals: Len Barber MD [Physician, Internal Medicine] Time of Disposition: 15:02
--- NOTE | 2025-02-28 13:49 | ECG_ITS ---
Test Date: 2025-02-28 14:06:27 Measurements Intervals [place] Rate: 93 P: 77 ND: 114 QRS: 65 QRSD: 82 T: 101 QT: 428 QTc: 534 Interpretive Statements SINUS RHYTHM WITH SHORT ND INTERVAL VOLTAGE CRITERIA FOR LVH PROLONGED QT INTERVAL ABNORMAL ECG No previous ECG available for comparison Electronically Signed On 02-28-2025 14:57:01 CDT by Miguel Redd D.O.
--- NOTE | 2025-02-28 13:53 | PC.NURSE ---
PATIENT TAKEN VIA WHEEL CHAIR TO IMAGING.
[2025-02-28] MEDS: IPRATROPIUM 0.5 MG/ALBUTEROL SULFATE 2.5 MG (BASE) AMPUL.NEB 3 ML INHALATION (14:13)
--- NOTE | 2025-02-28 14:21 | PC.NURSE ---
BLOOD WORK HAS BEEN DRAWN. CARDIOPULMONARY AT THE BEDSIDE. MEDICATED PER MAR
[2025-02-28 14:26] LABS: Hematocrit 32.6 % (35.0-49.0); Hemoglobin 9.2 g/dL (12.0-15.0); Immature Granulocyte Percent A 0.5 % (0.0-0.0); Lymphocytes Absolute Auto 1.42 K/mm3 (1.10-4.50); Mean Corpuscular HGB Conc 28.2 g/dL (32-36); Mean Corpuscular Hemoglobin 19.0 pg (27.0-31.0); Mean Corpuscular Volume 67.2 fL (78.0-102.0); Nucleated Red Blood Cells Absolute Auto 0.00 K/mm3 (0.00-0.00); Nucleated Red Blood Cells Perc 0.0 % (0-0.0); Platelet Count Result 310 K/mm3 (150-420); Red Blood Count 4.85 M/mm3 (4.20-5.40); White Blood Count 8.7 K/mm3 (4.8-10.8)
[2025-02-28 14:34] LABS: Influenza A QL RT-PCR Negative (Negative); Influenza B QL RT-PCR Negative (Negative); RSV RNA, RT-PCR Negative (Negative); SARS-CoV-2 RNA PCR Negative (Negative)
--- NOTE | 2025-02-28 14:37 | PC.NURSE ---
DR WESLEY AWARE OF ALL BLOOD PRESSURES
[2025-02-28 14:38] LABS: Alanine Aminotransferase 17 U/L (6-35); Albumin Level 3.8 g/dL (3.5-5.1); Alkaline Phosphatase 102 U/L (38-126); Anion Gap 7 mmol/L (4-12); Aspartate Amino Transferase 23 U/L (14-36); Bilirubin,Total 1.1 mg/dL (0.2-1.3); Blood Urea Nitrogen 9 mg/dL (7-17); Calcium 9.1 mg/dL (8.4-10.2); Carbon Dioxide 28 mmol/L (22-30); Chloride 107 mmol/L (98-107); Estimated CRCL calculation 87 ml/min; Estimated Glomerular Filt Rate > 60; Glucose 115 mg/dL (65-110); Osmolality Calculated 293 mOsm/kg (285-295); Potassium 4.0 mmol/L (3.4-5.0); Sodium 142 mmol/L (137-145); Total Protein 8.2 g/dL (6.3-8.2)
[2025-02-28 14:50] LABS: NT Pro B Type Natriuretic Pept 5280 pg/mL (19.9-100)
[2025-02-28 14:51] LABS: Troponin I 0.037 ng/mL (0.000-0.034)
[2025-02-28 15:02] LABS: HIV 1 P24 AG Negative (Negative); HIV 1/2 AB Negative (Negative)
[2025-02-28] MEDS: ASPIRIN 81 MG CHEWABLE TABLET 324 MG PO (15:28)
[2025-02-28] MEDS: FUROSEMIDE INJ 20 MG/2 ML VIAL 10 MG IV PUSH (15:28)
--- NOTE | 2025-02-28 15:41 | PC.NURSE ---
DR WESLEY NOTIFIED OF BLOOD PRESSURES POST CLONIDINE
[2025-02-28 16:06] LABS: Add Urine Microscopic? YES; Appearance Urine Clear (Clear); Glucose Urine UA Negative (Negative); Leukocyte Esterase Ur 2+ LEU/UL (Negative); Nitrate Urine Negative (Negative); Specific Grav Ur <= 1.005 (1.010-1.020)
[2025-02-28] MEDS: cefTRIAXone 1 GM in SODIUM CHLORIDE 0.9% IV 50 ML 100 ML IVPB (16:07)
[2025-02-28] MEDS: ENOXAPARIN 100 MG/ML SYRINGE 80 MG SUB-Q (16:07)
[2025-02-28] MEDS: AZITHROMYCIN 250 MG TABLET 1000 MG PO (16:07)
[2025-02-28 16:12] LABS: Pregnancy On Board Control Positive
[2025-02-28] MEDS: diazePAM INJ (*CRX) 10 MG/2 ML SYRINGE 5 MG IV PUSH (16:12)
--- OUTSIDE RECORDS SUMMARY | 2025-02-28 16:22 | XMS_ITS | Clinical Summary ---
Author Organization [facility] Address [address] [place] [address] Care Team Providers Care Body Presser Name Role Phone Yariel Ortiz PARCEL POST CARRIER-C Primary Care Provider [phone] Allergies No known active allergies Medications Aspirin-Acetami nophen-Caffeine (EXCEDRIN PO) Take Active venlafaxine (EFFEXOR XR) 37.5 MG XR capsule Take 1 capsule (37.5 mg) by mouth daily Active ARIPiprazole (ABILIFY) 10 MG tablet Take 1 tablet (10 mg) by mouth daily Active dicyclomine (BENTYL) 20 MG tablet Take1 tablet by mouth tid 4 Active Ferrous Gluconate 324 (37.5 Fe) MG TABS Take 1 tablet (324 mg) by mouth Nightly Active hydrocortisone 2.5 % cream Twice daily and as needed for internal/externa l Hemorrhoidal treatment (Pharmacy compound form if needed for lower cost, use OTC applicator) 7 Active omeprazole (PRILOSEC) 40 MG capsule Take 1 capsule (40 mg) by mouth daily Active ibuprofen (MOTRIN) 800 MG tablet Take 1 tablet (800 mg) by mouth 3 times daily as needed 4 Active verapamil (CALAN-SR) 120 MG CR tablet Take 1 tablet (120 mg) by mouth at bedtime 4 Active lisinopril (ZESTRIL) 10 MG tablet Take 1 tablet (10 mg) by mouth daily Active ustekinumab (STELARA) 90 MG/ML pre-filled syringeIndicati ons:Crohn's disease of small intestine with intestinal obstruction (HCC) Inject 1 mL (90 mg) into the skin every 4 weeks 12 mL 4 025 Active Problems Problem Noted Date Diagnosed Date History of resection of terminal ileum 4 Metabolic dysfunction-associated steatohepatitis (MASH) 02/04/2024 Regional enteritis of unspecified site 4 Overview (07/06/2015): IMO clean-up Ileitis 09/14/2013 Seizure 06/23/2013 Drug abuse 06/23/2013 Hypertension 06/23/2013 Immunizations Immunization Administration Dates Next Due DTP Immunization, IM 05/07/1990,01/26/19 89,12/04/1987,01/18,1986 Hep B/HiB 09/04/1989 Hepatitis B, Adult/Adol 02/24/2017,10/23/2016, Hepatitis B, Ped/Adolescent 08/30/2002, 2,02/13/1997 HiB 09/04/1989 Influenza Quadrivalent, Pres ervative Free 06/26/2023,02/04/2022,03/22/2021,02/07,04/05/2016,03/13/2015 Influenza, Quadrivalent (ccI IV4), Pres Free 02/14/2016 MMR 09/04/1989,01/15/1988 OPV 05/07/1990, 9,12/04/1987,01/18,1986 Pneumococcal Conj PEDS preferred PCV20 2 Pneumococcal Polysaccharide PPV23 03/13/2015 TD (Adult), Adsorbed 02/16/2002 Tdap 02/04/2022 Family History Medical History Relation Name Comments Alcohol Abuse Father Angina before 55 Father Dilated car diomyopathy at 41 Diabetes Father Drug Abuse Father Anesth Problems Mother Diabetes Other Drug Abuse Sister Relation Name Status Comments Brother Alive Father Mother Alive Other Sister Alive Social History Tobacco Use Types Packs/Day Years Used Date Smoking Tobacco: Every Day Cigarettes 0.5 5 Smokeless Tobacco: Never Tobacco Cessation:Counseling Given: Yes Alcohol Use Standard Drinks/Week Comments No 0 (1 standard drink = 0.6 oz pur e alcohol) Alcohol Use Answer Date Recorded Frequency of Alcohol Consumption Not on file 10/25/2023 Average Number of Drinks Not on file 024 Frequency of Binge Drinking Not on file 10/09 Alcohol Use Status No 10/25/2023 Average alcohol consumption Not on file 10/09 Comments No Sex and Gender Information Value Date Recorded Sex Assigned at Female 07/15/2024 10:02 AM WIND TUNNEL TECHNICIAN Legal Sex Female 8:46 AM WIND TUNNEL TECHNICIAN Gender Identity Not on file Sexual Orientation Not on file Occupation Industry Job Start Date Job End Date Not on file Not on file Not on file Not on file Last Filed Vital Signs Vital Sign Reading Time Taken Comments Blood Pressure 166/100 07/13/2024 4:04 PM WIND TUNNEL TECHNICIAN Pulse 73 07/13/2024 4:04 PM WIND TUNNEL TECHNICIAN Temperature 36.3 C (97.3 F) 07/13/2024 4:04 PM WIND TUNNEL TECHNICIAN Respiratory Rate 18 07/13/2024 4:04 PM WIND TUNNEL TECHNICIAN Oxygen Saturation 100% 07/13/2024 4:04 PM WIND TUNNEL TECHNICIAN Inhaled Oxygen Concentration - - Weight 98.8 kg (217 lb 12.8 oz) 07/13/2024 4:04 PM WIND TUNNEL TECHNICIAN Height 170.2 cm (5' 7) 07/13/2024 4:04 PM WIND TUNNEL TECHNICIAN Body Mass Index 34.11 07/13/2024 4:04 PM WIND TUNNEL TECHNICIAN Plan of Treatment Health Maintenance Due Date Last Done Comments HIV Screening 1986 YEARLY WELLNESS EXAM 1989 DEPRESSION SCREENING 1998 Varicella Vaccine (1 of 2 - 13+ 2-dose series) 09/13/1999 HPV VACCINES (1 - 3-dose series) 2001 CERVICAL CANCER SCREENING 09/13/2007 Influenza Vaccine 12/09/2024 06/26/2023, , 03/22/2021, Additional history exists COVID-19 Immunization ( season) 2025 BMI Above/Below Normal Parameters 02/03/2025 02/04/2024, 02/04/2024 ADULT TETANUS 02/05/2032 02/04/2022, 02/16/2002 Zoster Vaccine (Recombinant Vaccine) (1 of 2) 2036 HIB VACCINES Completed 09/04/1989, 09/04/1989 MMR VACCINES Completed 09/04/1989, 01/15/1988 Hepatitis C Screening ages 18 to 79 once Completed 10/23/2013 HEPATITIS B VACCINES Completed 02/24/2017, 10/23/2016, 08/25/2016, Additional history exists Pneumococcal Vaccine: Peds to 50 & At-Risk Patients Completed 02/04/2022, 03/13/2015 HEPATITIS A VACCINES Aged Out No long er eligible based on patient's age to complete this topic IPV VACCINES Aged Out No longer eligi ble based on patient's age to complete this topic MENINGOCOCCAL VACCINE Aged Out No sharlene miguelangel eligible based on patient's age to complete this topic Meningococcal B Vaccine Aged Out No l onger eligible based on patient's age to complete this topic ROTAVIRUS VACCINES Aged Out No longer eligible based on patient's age to complete this topic Procedures Procedure Name Priority Date/Time Associated Diagnosis Comments ACUTE HEPATITIS PANEL Routine 10/23/2013 11:14 AM CDT from Last 3 Months or Most Recently Relevant to Health Maintenance Results * ACUTE HEPATITIS PANEL (10/23/2013 11:14 AM CDT) Hepatitis B Surface Antigen NONREACTIVE (NEGATIVE) SUNQUEST Hepatitis B Core IgM Antibody NONREACTIVE (NEGATIVE) SUNQUEST Hepatitis C IgG Antibody NONREACTIVE (NEGATIVE) SUNQUEST Hepatitis A IgM Antibody NONREACTIVE (NEGATIVE) SUNQUEST Hepatitis B Surface Antigen Comment SEE NOTES SUNQUEST Comment: THIS ASSAY HAS NOT BEEN FDA CLEARED OR APPROVED FOR THE SCREENING OF BLOOD OR PLASMA DONORS. CURRENT METHODS FOR THE DETECTION OF HEP B SURFACE AG MAY NOT DETECT ALL INFECTED INDIVIDUALS. Hep B Core IgM Comment SEE NOTES SUNQUEST Comment: THIS ASSAY HAS NOT BEEN FDA CLEARED OR APPROVED FOR THE SCREENING OF BLOOD OR PLASMA DONORS. Hep C IgG Comment SEE NOTES SUNQUEST Comment: THIS ASSAY HAS NOT BEEN FDA CLEARED OR APPROVED FOR THE SCREENING OF BLOOD OR PLASMA DONORS. TEST PERFORMED USING [employer]MIL[employer]CHN[employer]. Hep A IgM Comment SEE NOTES SUNQUEST Comment: THIS ASSAY HAS NOT BEEN FDA CLEARED OR APPROVED FOR THE SCREENING OF BLOOD OR PLASMA DONORS. IN PATIENTS RECEIVING THERAPY WITH >5 MG/DAY BIOTIN, NO SAMPLE SHOULD BE TAKEN UNTIL AT LEAST 8 HRS AFTER LAST BIOTIN DOSE. Blood 10/23/2013 11:1 4 AM CDT 10/23/2013 11:18 AM CDT us Heather Junior ACNP CHEMISTRY ORDERABLES Fin al Result SUNQUEST from Last 3 Months or Most Recently Relevant to Health Maintenance Insurance GENERIC COMMERCIAL GENERIC COMMERCIAL Advance Directives * Full Code (Latest Code Status on File) Date Activated Date Inactivated Comments 06/23/2013 2:56 PM 06/24/2013 6:26 PM Care Teams Body Presser Relationship Specialty Start Date End Date Yariel Ortiz NP-C [address] [place] [address] 40 PCP - General Nurse Practitioner 02/04/24
[2025-02-28 16:33] LABS: Cannabinoid Screen Urine Positive (Negative)
[2025-02-28 16:45] LABS: INR 1.0; Prothrombin Time 13.2 Seconds (11.1-14.7)
[2025-02-28 16:46] LABS: Partial Thromboplastin Time 25.6 Seconds (22.3-36.8)
[2025-02-28 16:56] LABS: Syphilis IgG/IgM Antibody Non-Reactive (Nonreactive)
--- NOTE | 2025-03-03 12:34 | PC.NURSE ---
PRELIMINARY BLOOD CULTURE NO GROWTH IN 24 HOURS
--- NOTE | 2025-03-03 12:46 | PC.NURSE ---
FINAL URINE CULTURE SHOWS LESS THAN 10,000 COLONY FORMING UNITS OF BACTERIA PER MILLILITER OF URINE PER DOCTOR SALAH NO FURTHER ORDERS NEEDED
--- NOTE | 2025-03-04 12:32 | PC.NURSE ---
PRELIMINARY BLOOD CULTURE REPORT; NO GROWTH IN 48 HOURS.
--- NOTE | 2025-03-07 13:11 | PC.NURSE ---
FINAL BLOOD CULTURE RESULTS: NO GROWTH IN 5 DAY. MD ASIF STATES NO CHANGE IN CURRENT TREATMENT PLAN.
== END 2025-02-28 17:25 | disposition short-term general hospital (02) ==
PROVIDERS: Emergency Provider Emergency Medicine; Referring Provider Family Medicine
DX: I50.9 Heart failure, unspecified (principal); R79.89 Other specified abnormal findings of blood chemistry; F17.200 Nicotine dependence, unspecified, uncomplicated; Z20.822 Contact with and (suspected) exposure to COVID-19; Z11.3 Encounter for screening for infections with a predominantly sexual mode of transmission; Z91.148 Patient's other noncompliance with medication regimen for other reason
CPT/HCPCS: 36415; 71046; 80053; 80307; 81001; 81025; 83880; 84484; 85025; 85380; 85610; 85730; 86593; 87491; 87591; 87637; 87661; 87806; 93005; 94640; 96365; 96372; 96375; 99284; A9270; J0696; J1650; J1938; J2919; J3360

== ENCOUNTER 2025-02-28 18:03 | Inpatient (IN) | payer MEDICARE, MEDICAID, SELFPAY ==
--- NOTE | ~2025-02-28 | CT_ITS ---
CTA chest PE protocol HISTORY:SOB, elevated D dimer . COMPARISON: None. TECHNIQUE: Following the noncontrasted seismograph observer, axial images of the thorax were obtained following infusion of 100 cc of Isovue 370. Post-processing on an independent workstation was performed to reconstruct MIP images for evaluation of the thoracic vasculature. FINDINGS: There is no pulmonary embolism, aortic dissection, thoracic aneurysm or pericardial fluid. Small bilateral pleural effusions, right greater than left. Mild groundglass opacities bilaterally. There is no axillary, mediastinal or hilar adenopathy. Limited evaluation of the upper abdomen demonstrates no gross abnormalities. Review of bone windows demonstrates no osteoblastic or lytic lesions. IMPRESSION: There is no pulmonary embolism, aortic dissection, pericardial fluid or thoracic aneurysm. Mild groundglass opacity with bilateral pleural effusions suggestive of pulmonary edema. All CT scans at this facility are performed using low dose modulation techniques as appropriate to perform exam including the following: automated exposure control; use of iterative reconstruction technique; adjustment of the mA and/or kV according to patient size (this includes techniques or standardized protocols for targeted exams where dose is matched to indication/reason for exam). Reviewed, dictated and finalized at location S. IMPRESSION: There is no pulmonary embolism, aortic dissection, pericardial fluid or thoraci c aneurysm. Mild groundglass opacity with bilateral pleural effusions suggestive of pulmona ry edema. All CT scans at this facility are performed using low dose modulation techniqu es as appropriate to perform exam including the following: automated exposure c ontrol; use of iterative reconstruction technique; adjustment of the mA and/or kV according to patient size (this includes techniques or standardized protocol s for targeted exams where dose is matched to indication/reason for exam).
--- NOTE | ~2025-02-28 | US_ITS ---
EXAMINATION: US venous doppler [facility], 03/01/2025 14:00 CDT HISTORY: +DDimer COMPARISON: None Technique: Schaeffer-scale and color Doppler images were attempted of the lower saphenofemoral junction, common femoral vein,superficial femoral vein, proximal deep femoral vein, proximal deep femoral vein, popliteal vein and posterior tibial veins. Findings: Deep Venous System:Normal flow, augmentation and compressibility. No echogenic thrombus identified. Superficial Venous SystemNo superficial thrombophlebitis. Soft tissues: Soft tissues are unremarkable. Impression: Negative for DVT. Reviewed, dictated and finalized at location P. Impression: Negative for DVT.
[2025-02-28 18:21] VITALS: BMI 28.1
--- NOTE | 2025-02-28 18:21 | ADMGEN ---
This patient, Chastity Aparicio, was admitted to IMU Room 211-01. Patient/family oriented to hospital policies and general routines including ID bracelet, bed and alarms, visiting hours, pain management, procedures, bathroom and other care routines, personal items, smoking policy, room service/diet, and visiting hours. Information on how to activate the Rapid Response Team has been discussed. Patient/Family are encouraged to report perceived risks to care and to ask questions if they do not understand what they are told or what they should do.
[2025-02-28 19:47] VITALS: BP 144/94; PULSE 99; RESP 16; TEMP 36.6; O2SAT 99
[2025-02-28 20:00] VITALS: PULSE 102
--- OUTSIDE RECORDS SUMMARY | 2025-02-28 20:01 | XMS_ITS | Encounter Summary ---
Author Organization [facility] Address [address] [place] [id number] Care Team Providers Care Heavy Equipment Sales Associate Name Role Phone Yariel Ortiz AUTO BODY CUSTOMIZER-C Primary Care Provider [phone] Encounter Details Date Type Department Care Team (Late st Contact Info) Description 04/20/[address] [facility] Specialty [facility] Gastroenterology [address] [place] [address] Susanna Peacock, SANDER Social History Tobacco Use Types Packs/Day Years Used Date Smoking Tobacco: Every Day Cigarettes 0.5 5 Smokeless Tobacco: Never Alcohol Use Standard Drinks/Week Comments No 0 [...] Sex Assigned at Female 07/15/2024 10:02 AM TRAIN INSPECTOR Legal Sex Female 8:46 AM TRAIN INSPECTOR Gender Identity Not on file Sexual Orientation Not on file Occupation Industry Job Start Date Job End Date Not on file Not on file Not on file Not on file documented as of this encounter Functional Status * Are you deaf or do you have serious difficulty hearing? Answer Date of Assessment Author No 10/25/2015 10:52 AM Edie Ji, SANDER * Are you blind or do you have serious difficulty seeing, even when wearing glasses? Answer Date of Assessment Author No 10/25/2015 10:52 AM Edie Ji RN * Do you have serious difficulty walking or climbing stairs? Answer Date of Assessment Author No 10/25/2015 10:52 AM Edie Ji RN * Do you have difficulty dressing or bathing? Answer Date of Assessment Author No 10/25/2015 10:52 AM Edie Ji RN * Because of a physical, mental, or emotional condition, do you have difficulty doing errands alone such as visiting a doctor's office or shopping? Answer Date of Assessment Author No 10/25/2015 10:52 AM Edie Ji RN documented as of this encounter Mental Status * Because of a physical, mental, or emotional condition, do you have serious difficulty concentrating, remembering, or making decisions? Answer Entry Date Author No 10/25/2015 10:52 AM Edie Ji RN documented in this encounter Plan of Treatment Not on file documented as of this encounter Visit Diagnoses Not on filedocumented in this encounter Care Teams Heavy Equipment Sales Associate Relationship Specialty Start Date End Date Yariel Ortiz, AUTO BODY CUSTOMIZER-C [address] [place] [address] PCP - General Nurse Practitioner 02/04/24 documented as of this encounter
--- OUTSIDE RECORDS SUMMARY | 2025-02-28 20:01 | XMS_ITS | Clinical Summary ---
Author Organization [facility] Address [address] [place] [address] Care Team Providers Care Insurance Agency Manager Name Role Phone Yariel Ortiz SPINDLE SANDER-C Primary Care Provider [phone] Allergies No known active allergies Medications Aspirin-Acetami [...] Sex Assigned at Female 07/15/2024 10:02 AM MID LEVEL PROJECT MANAGER Legal Sex Female 8:46 AM MID LEVEL PROJECT MANAGER Gender Identity Not on file Sexual Orientation Not on file Occupation Industry Job Start Date Job End Date Not on file Not on file Not on file Not on file Last Filed Vital Signs Vital Sign Reading Time Taken Comments Blood Pressure 166/100 07/13/2024 4:04 PM MID LEVEL PROJECT MANAGER Pulse 73 07/13/2024 4:04 PM MID LEVEL PROJECT MANAGER Temperature 36.3 C (97.3 F) 07/13/2024 4:04 PM MID LEVEL PROJECT MANAGER Respiratory Rate 18 07/13/2024 4:04 PM MID LEVEL PROJECT MANAGER Oxygen Saturation 100% 07/13/2024 4:04 PM MID LEVEL PROJECT MANAGER Inhaled Oxygen Concentration - - Weight 98.8 kg (217 lb 12.8 oz) 07/13/2024 4:04 PM MID LEVEL PROJECT MANAGER Height 170.2 cm (5' 7) 07/13/2024 4:04 PM MID LEVEL PROJECT MANAGER Body Mass Index 34.11 07/13/2024 4:04 PM MID LEVEL PROJECT MANAGER Plan of Treatment Health Maintenance Due Date [...] BLOOD OR PLASMA DONORS. TEST PERFORMED USING [employer] CHEM[employer]CHN[employer]. Hep A IgM Comment SEE [...] 2:56 PM 06/24/2013 6:26 PM Care Teams Insurance Agency Manager Relationship Specialty Start Date End Date Yariel Ortiz NP-C [address] [place] [address] 39 PCP - General Nurse Practitioner 02/04/24
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
[2025-02-28] MEDS: VERAPAMIL HCL ER 120 MG TABLET PO (20:33)
[2025-02-28 21:11] LABS: Troponin I 0.025 ng/mL (0.000-0.034)
[2025-02-28 21:32] LABS: Influenza A QL RT-PCR Negative (Negative); Influenza B QL RT-PCR Negative (Negative); RSV RNA, RT-PCR Negative (Negative); SARS-CoV-2 RNA PCR Negative (Negative)
[2025-02-28] MEDS: ENOXAPARIN 80 MG/0.8 ML SYRINGE SUB-Q (21:50)
[2025-02-28 22:00] VITALS: PULSE 107
[2025-02-28 23:01] LABS: Troponin I 0.021 ng/mL (0.000-0.034)
[2025-02-28 23:08] LABS: Estimated CRCL calculation 89 ml/min; Estimated Glomerular Filt Rate > 60
[2025-02-28 23:40] VITALS: BP 139/83; PULSE 104; RESP 16; TEMP 36.6; O2SAT 97
[2025-03-01] VITALS (26 sets, daily range): BP systolic 143–169; BP diastolic 81–103; PULSE 91–109; RESP 14–24; TEMP 36.7–36.8; O2SAT 92–99
--- NOTE | 2025-03-01 | ECHO_ITS ---
Patient Info Name: Chastity Aparicio Age: 39 years : 1985 Gender: Female Ht: 67 in Wt: 179 lbs BSA: 1.98 m2 HR: 95 bpm BP: 150 / 98 mmHg Technical Quality: Good Exam Date: 03/01/2025 10:47 AM Patient Status: I Admit Date: 03/01/2025 Exam Type: CA echo dop color flow w con Complete two-dimensional, color flow and Doppler transthoracic echocardiogram is performed with contrast to opacify the left ventricle and to improve the deliniation of the left ventricle endocardial borders. Staff Referring Physician: Mateusz Nelson MD Resident Services Director: Brenda Su Attending Provider: Francis Medraon Contrast/Agitated Saline Contrast/Ag. Saline: Definity Amount: 2.00 ml Summary 1. Left ventricular systolic function is normal, estimated at 50-55. 2. There is mildly increased left ventricular wall thickness. 3. The left ventricular diastolic function is abnormal. 4. Left atrial chamber dimension is severely enlarged. 5. There is moderate mitral valve regurgitation. 6. There is mild tricuspid valve regurgitation. 7. Mild pulmonary hypertension, estimated pulmonary arterial systolic pressure is 40 mmHg. Left Ventricle Left ventricular chamber dimension is normal. Left ventricular systolic function is normal, estimated at 50-55. There is mildly increased left ventricular wall thickness. Left ventricular septal wall motion is normal. The left ventricular diastolic function is abnormal. Right Ventricle Right ventricular chamber dimension is normal. Right ventricular systolic function is normal. Left Atria Left atrial chamber dimension is severely enlarged. Right Atria Right atrial chamber dimension is normal. Aortic Valve The aortic valve is trileaflet. There is mild aortic valve sclerosis. There is no aortic valve stenosis. There is no aortic valve regurgitation. Pulmonic Valve The pulmonic valve is normal. There is no pulmonic valve stenosis. There is no pulmonic regurgitation. Mitral Valve The mitral valve has normal leaflets. There is no mitral valve stenosis. There is moderate mitral valve regurgitation. Tricuspid Valve The tricuspid valve leaflets are normal. There is no significant tricuspid valve stenosis. There is mild tricuspid valve regurgitation. Mild pulmonary hypertension, estimated pulmonary arterial systolic pressure is 40 mmHg. Pericardium/Pleural The pericardium appears normal. There is no pericardial effusion. Inferior Vena Cava Normal inferior vena cava with >50% collapse upon inspiration consistent with normal right atrial pressure, 5 mmHg. Aorta The aortic root size at the sinus of Valsalva is normal. The prox ascending aorta size is normal. Left Ventricular Outflow Tract Name Value Normal LVOT 2D LVOT Diameter 2.1 cm LVOT Doppler LVOT Peak Velocity 114 cm/s LVOT Peak Gradient 5 mmHg LVOT Mean Gradient 3 mmHg LVOT VTI 21 cm LVOT Stroke Volume 71 ml LVOT CO 6.8 l/min LVOT CI 3.4 l/min/m2 Pulmonic Valve Name Value Normal RVOT Doppler RVOT Peak Velocity 92 cm/s RVOT Peak Gradient 3 mmHg PV Doppler PV Peak Velocity 114 cm/s PV Peak Gradient 5 mmHg Mitral Valve Name Value Normal MV Diastolic Function MV E Peak Velocity 119 cm/s MV A Peak Velocity 70 cm/s MV E/A 1.7 MV Decel Time (PW) 89 ms MV Annular TDI MV E/e' (Septal) 16.3 MV E/e' (Lateral) 12.6 MV E/e' (Average) 14.4 Tricuspid Valve Name Value Normal TV Regurgitation Doppler TR Peak Velocity 297 cm/s TR Peak Gradient 34 mmHg Estimated PAP/RSVP RA Pressure 5 mmHg <=5 PA Systolic Pressure 40 mmHg <36 RV Systolic Pressure 40 mmHg <36 Aortic Valve Name Value Normal AV Doppler AV Peak Velocity 166 cm/s AV Peak Gradient 11 mmHg AV Area (Cont Eq Duncan) 2.3 cm2 AV DI (Duncan) 0.69 AV Regurgitation 2D LVOT Area 3.3 cm2 Ventricles Name Value Normal LV Dimensions 2D/MM IVS Diastolic Thickness (2D) 0.8 cm 0.6-1.0 LVID Diastole (2D) 5.8 cm 3.8-5.2 LVIW Diastolic Thickness (2D) 0.9 cm 0.6-0.9 LVID Systole (2D) 4.3 cm 2.2-3.5 LVOT Diameter 2.1 cm LV Mass (2D Cubed) 180.04 g 67.00-162.00 LV Mass Index (2D Cubed) 91 g/m2 43-95 Relative Wall Thickness (2D) 0.30 <=0.42 LV Fractional Shortening/Ejection Fraction 2D/MM LV Fractional Shortening (2D) 23 % 27-45 LV EF (2D Teichholz) 50 % LV Diastolic Volume (4C MOD) 159 ml LV EF (4C MOD) 48 % LV Diastolic Volume (2C MOD) 186 ml LV EF (2C MOD) 56 % LV Diastolic Volume (BP MOD) 174 ml 46-106 LV Diastolic Volume Index (BP MOD) 88 ml/m2 29-61 LV Systolic Volume (BP MOD) 85 ml 14-42 LV Systolic Volume Index (BP MOD) 43 ml/m2 8-24 LV EF (BP MOD) 52 % 54-74 LV Diastolic Length (4C) 9.5 cm LV Systolic Length (4C) 8.7 cm LV Stroke Volume (4C MOD) 75 ml Atria Name Value Normal LA Dimensions LA Volume (4C A-L) 123 ml LA Volume (BP A-L) 110 ml RA Dimensions RA Systolic Major [place] Length (4C) 5.0 cm 2.2-2.8 RA Area (4C) 11.3 cm2 <=18.0 Report Signatures
[2025-03-01] MEDS: IPRATROPIUM 0.5 MG/ALBUTEROL SULFATE 2.5 MG (BASE) AMPUL.NEB 3 ML INHALATION ×4 (02:06→21:42)
[2025-03-01 04:18] LABS: Hematocrit 30.1 % (37.0-47.0); Hemoglobin 8.4 g/dL (12.0-15.0); Immature Granulocyte Percent A 0.6 % (0-0.5); Lymphocytes Absolute Auto 0.74 K/mm3 (0.9-3.2); Mean Corpuscular HGB Conc 27.9 g/dl (32-36); Mean Corpuscular Hemoglobin 18.8 pg (26-34); Mean Corpuscular Volume 67.5 fl (80-100); Nucleated Red Blood Cells Absolute Auto 0.000 K/mm3 (0.0-0.012); Nucleated Red Blood Cells Perc 0.0 % (0.0-0.2); Platelet Count Result 334 k/mm3 (150-375); Red Blood Count 4.46 M/mm3 (4.2-5.4); White Blood Count 12.8 K/mm3 (4.5-10.0)
[2025-03-01 04:43] LABS: Anisocytosis Occasional; Hypochromasia 1+
[2025-03-01 04:44] LABS: Alanine Aminotransferase 18 U/L (6-35); Albumin Level 3.6 g/dL (3.5-5.1); Alkaline Phosphatase 108 U/L (38-126); Anion Gap 7 mmol/L (4-12); Aspartate Amino Transferase 22 U/L (14-36); Bilirubin,Total 0.8 mg/dL (0.2-1.3); Blood Urea Nitrogen 13 mg/dL (7-17); Calcium 8.9 mg/dL (8.4-10.2); Carbon Dioxide 25 mmol/L (22-30); Chloride 105 mmol/L (98-107); Cholesterol 183 mg/dL (0-200); Estimated CRCL calculation 103 ml/min; Estimated Glomerular Filt Rate > 60; Glucose 134 mg/dL (65-110); HDL Direct 72 mg/dL; Magnesium 1.6 mg/dL (1.6-2.3); Ovalocytes 1+; Potassium 3.9 mmol/L (3.4-5.0); Schistocytes None Seen; Sodium 137 mmol/L (137-145); Total Protein 7.2 g/dL (6.3-8.2); Triglycerides 106 mg/dL (<150)
[2025-03-01 05:42] LABS: Hepatitis B Surface Antigen Negative (Negative)
[2025-03-01 05:48] LABS: HAV RESULT Negative (Negative); Hepatitis B Core IgM Result Negative (Negative)
[2025-03-01] MEDS: ACETAMINOPHEN 325 MG TABLET 650 MG PO ×2 (06:11→20:34)
[2025-03-01] MEDS: VENLAFAXINE HCL 75 MG TABLET 150 MG PO (08:54)
[2025-03-01] MEDS: FAMOTIDINE 20 MG TABLET 40 MG PO (08:54)
[2025-03-01] MEDS: FUROSEMIDE 20 MG TABLET PO (08:54)
[2025-03-01] MEDS: ASPIRIN 81 MG ENTERIC TABLET PO (08:55)
[2025-03-01] MEDS: ENOXAPARIN 40 MG/0.4 ML SYRINGE SUB-Q (09:07)
--- NOTE | 2025-03-01 09:22 | PM.PNCARD ---
Subjective Date/time seen: 03/01/25 09:22 Objective Data Vital Signs Vital Signs: Vital Signs - 24 hr 02/28/25 19:47 02/28/25 20:00 02/28/25 20:00 Temperature 36.6 C Pulse Rate 99 102 H Respiratory Rate 16 Blood Pressure 144/94 H Pulse Oximetry 99 Oxygen Delivery Room Air Fraction of Inspired Oxygen 02/28/25 22:00 02/28/25 23:40 03/01/25 00:00 Temperature 36.6 C Pulse Rate 107 H 104 H Respiratory Rate 16 Blood Pressure 139/83 Pulse Oximetry 97 Oxygen Delivery Room Air Fraction of Inspired Oxygen 03/01/25 00:00 03/01/25 02:00 03/01/25 02:06 Temperature Pulse Rate 100 100 95 Respiratory Rate 24 H Blood Pressure Pulse Oximetry Oxygen Delivery Fraction of Inspired Oxygen 03/01/25 02:14 03/01/25 02:18 03/01/25 03:56 Temperature 36.8 C Pulse Rate 95 95 97 Respiratory Rate 24 H 20 14 Blood Pressure 150/98 H Pulse Oximetry 96 96 Oxygen Delivery Room Air Fraction of Inspired Oxygen 03/01/25 04:00 03/01/25 04:00 03/01/25 06:00 Temperature Pulse Rate 93 95 Respiratory Rate Blood Pressure Pulse Oximetry Oxygen Delivery Room Air Fraction of Inspired Oxygen 03/01/25 07:31 03/01/25 07:31 03/01/25 07:35 Temperature 36.7 C Pulse Rate 91 94 Respiratory Rate 16 18 Blood Pressure 143/81 H Pulse Oximetry 92 99 Oxygen Delivery Room Air Fraction of Inspired Oxygen 03/01/25 07:37 Temperature Pulse Rate 91 Respiratory Rate 16 Blood Pressure Pulse Oximetry Oxygen Delivery Fraction of Inspired Oxygen Intake/Output Intake/Output: Intake & Output 02/26/25 02/27/25 02/28/25 03/01/25 23:59 23:59 23:59 23:59 Output Total 0 Balance 0 Meds/Results Medications: Active Medications Generic Name Dose Route Start Last Admin Trade Name Freq PRN Reason Stop Dose Admin Acetaminophen 650 mg 02/28/25 18:26 03/01/25 06:11 Acetaminophen 325 Mg Tablet PO 650 mg Q4H PRN Administration Mild Pain (1-3) or Fever Albuterol/Ipratropium 3 ml 03/01/25 02:00 03/01/25 07:30 Ipratropium 0.5 Mg/Albuterol Sulfate 2.5 Mg (Base) Ampul.Neb 3 Ml INHALATION 3 ml Q6HRT JUAN Administration Aripiprazole 15 mg 03/01/25 09:00 03/01/25 08:54 Aripiprazole 5 Mg Tablet PO 15 mg DAILY JUAN Administration Aspirin 81 mg 03/01/25 09:00 03/01/25 08:55 Aspirin 81 Mg Enteric Tablet PO 81 mg QAM JUAN Administration Enoxaparin Sodium 40 mg 03/01/25 09:00 03/01/25 09:07 Enoxaparin 40 Mg/0.4 Ml Syringe SUB-Q 40 mg DAILY JUAN Administration Famotidine 40 mg 03/01/25 09:00 03/01/25 08:54 Famotidine 20 Mg Tablet PO 40 mg DAILY JUAN Administration Furosemide 20 mg 03/01/25 09:00 03/01/25 08:54 Furosemide 20 Mg Tablet PO 20 mg DAILY JUAN Administration Lisinopril 10 mg 03/01/25 09:00 03/01/25 08:55 Lisinopril 10 Mg Tablet PO 10 mg DAILY JUAN Administration Nitroglycerin 0.4 mg 02/28/25 18:27 Nitroglycerin Sl 0.4 Mg Tablet SUBLINGUAL Q5MIN PRN Chest Pain Perflutren Lipid Microsphere 0 ml 02/28/25 18:26 Perflutren Lipid Microspheres 1.5 Ml Vial Diluted To 10 Ml Total Volume IV PUSH 03/03/25 18:27 ONCE PRN adequate visualization Protocol Prednisone 40 mg 03/01/25 08:00 03/01/25 08:55 Prednisone 20 Mg Tablet PO 40 mg DAILY@0800 JUAN Administration Venlafaxine HCl 150 mg 03/01/25 09:00 03/01/25 08:54 Venlafaxine Hcl 75 Mg Tablet PO 150 mg DAILY JUAN Administration Verapamil HCl 120 mg 02/28/25 21:00 02/28/25 20:33 Verapamil Hcl Er 120 Mg Tablet PO 120 mg HS JUAN Administration Radiology Results: ITS Impressions Chest CTA 02/28/25 21:08 IMPRESSION: There is no pulmonary embolism, aortic dissection, pericardial fluid or thoracic aneurysm. Mild groundglass opacity with bilateral pleural effusions suggestive of pulmonary edema. All CT scans at this facility are performed using low dose modulation techniques as appropriate to perform exam including the following: automated exposure control; use of iterative reconstruction technique; adjustment of the mA and/or kV according to patient size (this includes techniques or standardized protocols for targeted exams where dose is matched to indication/reason for exam). Labs Labs: Laboratory Results - last 24 hr 02/28/25 02/28/25 02/28/25 19:47 20:35 22:31 WBC RBC Hgb Hct MCV MCH MCHC RDW Plt Count MPV Immature Gran % (Auto) Neut % (Auto) Lymph % (Auto) [place] % (Auto) Eos % (Auto) Baso % (Auto) Lymph # (Auto) [place] # (Auto) Eos # (Auto) Baso # (Auto) Abs Immat Gran (auto) Absolute Neuts (auto) Absolute Nucleated RBC Band Neutrophils % Nucleated RBC % Platelet Estimate Hypochromasia Anisocytosis Ovalocytes Schistocytes Sodium Potassium Chloride Carbon Dioxide Anion Gap BUN Creatinine 0.82 Estim Creat Clear Calc 89 Estimated GFR > 60 Glucose Calcium Magnesium Total Bilirubin AST ALT Alkaline Phosphatase Troponin I 0.025 D 0.021 Total Protein Albumin Triglycerides Cholesterol LDL Cholesterol Direct HDL Direct Hepatitis A IgM Ab Hep Bs Antigen Hep B Core IgM Ab Hepatitis C Ab Screen Influenza A (RT-PCR) Negative Influenza B (RT-PCR) Negative RSV (RT-PCR) Negative SARS-CoV-2 RNA (RT-PCR) Negative 03/01/25 03:57 WBC 12.8 H RBC 4.46 Hgb 8.4 L Hct 30.1 L MCV 67.5 L MCH 18.8 L MCHC 27.9 L RDW 17.5 H Plt Count 334 MPV 10.6 H Immature Gran % (Auto) 0.6 H Neut % (Auto) 90.8 H Lymph % (Auto) 5.8 L [place] % (Auto) 2.6 Eos % (Auto) 0.0 Baso % (Auto) 0.2 Lymph # (Auto) 0.74 L [place] # (Auto) 0.3 Eos # (Auto) 0.0 Baso # (Auto) 0.0 Abs Immat Gran (auto) 0.08 H Absolute Neuts (auto) 11.6 H Absolute Nucleated RBC 0.000 Band Neutrophils % Not Reportable Nucleated RBC % 0.0 Platelet Estimate Adequate Hypochromasia 1+ Anisocytosis Occasional Ovalocytes 1+ Schistocytes None seen Sodium 137 Potassium 3.9 Chloride 105 Carbon Dioxide 25 Anion Gap 7 BUN 13 Creatinine 0.70 Estim Creat Clear Calc 103 Estimated GFR > 60 Glucose 134 H Calcium 8.9 Magnesium 1.6 Total Bilirubin 0.8 AST 22 ALT 18 Alkaline Phosphatase 108 Troponin I Total Protein 7.2 Albumin 3.6 Triglycerides 106 Cholesterol 183 LDL Cholesterol Direct 81 HDL Direct 72 Hepatitis A IgM Ab Negative Hep Bs Antigen Negative Hep B Core IgM Ab Negative Hepatitis C Ab Screen Negative Influenza A (RT-PCR) Influenza B (RT-PCR) RSV (RT-PCR) SARS-CoV-2 RNA (RT-PCR)
--- NOTE | 2025-03-01 09:23 | PM.CNCAR ---
Assessment and Plan Assessment and plan (1) Elevated troponin: Code(s): R79.89 - Other specified abnormal findings of blood chemistry Status: Inactive (2) Hypertension: Code(s): I10 - Essential (primary) hypertension Status: Acute (3) Acute exacerbation of chronic obstructive pulmonary disease: Code(s): J44.1 - Chronic obstructive pulmonary disease with (acute) exacerbation Status: Inactive (4) Shortness of breath: Code(s): R06.02 - Shortness of breath Status: Acute Plan Shortness of breath. Patient presents with shortness of breath x 1 week that is worse with any activity and unrelieved by inhalers. Concern is for acute COPD exacerbation, but she was noted to have elevated troponin and pBNP of 5280. On exam no obvious volume overload. Her CTA chest has been negative for PE and her CXR is with no acute cardiopulmonary process. Symptoms have improved with steroids and nebs. Will order 2D echo to look for any LV dysfunction or wall motion abnormality. Agree with continued PO lasix at this time. Elevated troponin. With initial troponin of 0.037, this is indeterminate and subsequent troponin within normal range. Elevation most likely secondary to demand ischemia in setting of uncontrolled HTN on admission. Her EKG shows a NSR with no acute ST/T wave changes. Echo is pending to look for any LV dysfunction or wall motion abnormality. At this time however, no invasive cardiac w/u planned. Uncontrolled Hypertension. Noted on admission. Secondary to medication non-compliance. She has been without meds for >1 year. Her lisinopril has been restarted and will monitor BP and adjust meds as needed Prolonged QTC. May be secondary to her drug abuse. Will update EKG and monitor for any arrhythmia. Will give IV Magnesium as 1.6 on am labs COPD exacerbation. Continue nebs and steroids as per primary team Substance abuse. Admits to methamphetamine intravenous use 2 weeks ago. still smoking Marijuana as well. Cessation encouraged. History of Present Illness History of Present Illness Consult date/time: 03/01/25 09:23 Requesting physician: Carla Jacome MD Consult reason: shortness of breath Reason For Visit: chf,elevated troponin Narrative: Chastity Aparicio is a 39 year old female with a PMH of COPD, HTN, Chron's disease and substance abuse. Patient reports for the last 2 weeks she has been staying in a senior care with mold, she noted last week that she became short of breath with any activity. She states she could barely walk across a room without becoming short of breath. She also, noted some associated heaviness in her chest. She states she tried to cough, but could not. She felt feverish, but did not check her temperature. She states she tried using her inhaler with very little relief. No associated dizziness or palpitations. She was found to have an elevated pBNP and troponin for which we were consulted. Review of Systems Review of Systems: All systems reviewed & are unremarkable except as noted in HPI and below PMFSH Past Medical History Medical History Depression PCOS (polycystic ovarian syndrome) Hemorrhoids COPD (chronic obstructive pulmonary disease) GERD (gastroesophageal reflux disease) Crohn's disease Surgical History Surgical History History of D&C H/O hemorrhoidectomy x2 S/P small bowel resection H/O laparoscopy Family History Family History (Updated 02/28/25 @ 18:37 by Francisco J Cintron RN) Mother Cerebrovascular accident Diabetes mellitus Hypertension Father Cerebrovascular accident Diabetes mellitus Hypertension Cardiomyopathy Social History Social History Smoking packs per day: 0.5 Smoking cigarettes per day: 10.0 Years smoked: 14 Smoking pack-years: 7.00 Smoking status: Current every day smoker Tobacco type: cigarettes and e-cigarettes/vaping Alcohol intake: never Substance use: current Substance use type: marijuana and methamphetamine Last use: 02/21/25 Lack of Transportation: No Lack of Food: Never True Current Housing: I Do Not Have Housing Concerned About Future Housing: YES Difficulty Paying Gas/Electric Bills: No Difficulty Paying for Meds: No Currently Unemployed: No Education: High School Diploma/GED Difficulty w/ Childcare or Family Care: No Living arrangements: with family Spiritual care concerns: No Meds Home Medications and Allergies Home Medications ?Medication ?Instructions ?Recorded ?Confirmed ?Type lisinopril 10 mg tablet 10 mg PO DAILY 03/06/20 02/28/25 History ustekinumab 45 mg/0.5 mL 45 mg subcut ONCE 03/06/20 02/28/25 History subcutaneous solution (Stelara) venlafaxine 75 mg tablet 150 mg PO DAILY 03/06/20 02/28/25 History famotidine 40 mg tablet 40 mg PO DAILY 04/23/20 02/28/25 History verapamil 120 mg tablet,extended 120 mg PO HS 04/23/20 02/28/25 History release aripiprazole 15 mg tablet (Abilify) 15 mg PO DAILY 02/28/25 02/28/25 History Allergies Allergy/AdvReac Type Severity Reaction Status Date / Time No Known Allergies Allergy Verified 02/28/25 18:26 Vital Signs Vital Signs - 24 hr 02/28/25 19:47 02/28/25 20:00 02/28/25 20:00 Temperature 36.6 C Pulse Rate 99 102 H Respiratory Rate 16 Blood Pressure 144/94 H Pulse Oximetry 99 Oxygen Delivery Room Air Fraction of Inspired Oxygen 02/28/25 22:00 02/28/25 23:40 03/01/25 00:00 Temperature 36.6 C Pulse Rate 107 H 104 H Respiratory Rate 16 Blood Pressure 139/83 Pulse Oximetry 97 Oxygen Delivery Room Air Fraction of Inspired Oxygen 03/01/25 00:00 03/01/25 02:00 03/01/25 02:06 Temperature Pulse Rate 100 100 95 Respiratory Rate 24 H Blood Pressure Pulse Oximetry Oxygen Delivery Fraction of Inspired Oxygen 03/01/25 02:14 03/01/25 02:18 03/01/25 03:56 Temperature 36.8 C Pulse Rate 95 95 97 Respiratory Rate 24 H 20 14 Blood Pressure 150/98 H Pulse Oximetry 96 96 Oxygen Delivery Room Air Fraction of Inspired Oxygen 03/01/25 04:00 03/01/25 04:00 03/01/25 06:00 Temperature Pulse Rate 93 95 Respiratory Rate Blood Pressure Pulse Oximetry Oxygen Delivery Room Air Fraction of Inspired Oxygen 03/01/25 07:31 03/01/25 07:31 03/01/25 07:35 Temperature 36.7 C Pulse Rate 91 94 Respiratory Rate 16 18 Blood Pressure 143/81 H Pulse Oximetry 92 99 Oxygen Delivery Room Air Fraction of Inspired Oxygen 03/01/25 07:37 Temperature Pulse Rate 91 Respiratory Rate 16 Blood Pressure Pulse Oximetry Oxygen Delivery Fraction of Inspired Oxygen Exam Const: General: comfortable and no acute distress Eyes: General: appearance normal, both eyes and all related structures Neck: Neck: supple and No no JVD Carotids: no bruits Resp: Effort & Inspection: normal respiratory effort Auscultation: clear to auscultation bilaterally Cardio: Rate: regular rate Rhythm: regular rhythm Heart sounds: no gallops, no murmurs and no rubs Skin: General skin exam: normal color and no erythema Neuro: Speech: normal speech Extrem: General: normal to inspection and no edema Psych: Mental Status: mental status grossly normal Results Labs and Meds 03/01/25 03:57 03/01/25 03:57 Lab results: Cardiac Enzymes 02/28/25 02/28/25 03/01/25 Range/Units 19:47 22:31 03:57 AST 22 (14-36) U/L Troponin I 0.025 D 0.021 (0.000-0.034) ng/mL Lipids 03/01/25 Range/Units 03:57 Triglycerides 106 (<150) mg/dL Cholesterol 183 (0-200) mg/dL CBC 03/01/25 Range/Units 03:57 WBC 12.8 H (4.5-10.0) K/mm3 RBC 4.46 (4.2-5.4) M/mm3 Hgb 8.4 L (12.0-15.0) g/dL Hct 30.1 L (37.0-47.0) % Plt Count 334 (150-375) k/mm3 Lymph # (Auto) 0.74 L (0.9-3.2) K/mm3 [place] # (Auto) 0.3 (0.1-0.6) K/mm3 Eos # (Auto) 0.0 (0-0.3) K/mm3 Baso # (Auto) 0.0 (0.0-0.1) K/mm3 Comprehensive Metabolic Panel 02/28/25 03/01/25 Range/Units 22:31 03:57 Sodium 137 (137-145) mmol/L Potassium 3.9 (3.4-5.0) mmol/L Chloride 105 (98-107) mmol/L Carbon Dioxide 25 (22-30) mmol/L BUN 13 (7-17) mg/dL Creatinine 0.82 0.70 (0.7-1.0) mg/dL Glucose 134 H (65-110) mg/dL Calcium 8.9 (8.4-10.2) mg/dL AST 22 (14-36) U/L ALT 18 (6-35) U/L Alkaline Phosphatase 108 (38-126) U/L Total Protein 7.2 (6.3-8.2) g/dL Albumin 3.6 (3.5-5.1) g/dL Intake and Output 02/28/25 03/01/25 03/01/25 23:59 07:59 15:59 Output Total 0 Balance 0 Output: Urine 0 Other: # Unmeasured Voids 1 Patient Weight 03/01/25 23:59 Weight 81.6 kg Imaging and Cardiology EKG results: image reviewed EKG Interpretation EKG: sinus rhythm (prolonged QTC of 534 ) and normal ST/T EKG shows: tachycardia
--- NOTE | 2025-03-01 09:42 | ECG_ITS ---
Test Date: 2025-03-01 11:18:41 Measurements Intervals [place] Rate: 92 P: -8 MN: 120 QRS: 22 QRSD: 81 T: 72 QT: 388 QTc: 480 Interpretive Statements SINUS RHYTHM VOLTAGE CRITERIA FOR LVH BORDERLINE ECG Compared to ECG 02/28/2025 14:06:27 NO SIGNIFICANT CHANGE Electronically Signed On 03-01-2025 11:29:17 CDT by Miguel Redd D.O.
[2025-03-01] MEDS: PERFLUTREN LIPID MICROSPHERES 1.5 ML VIAL DILUTED TO 10 ML TOTAL VOLUME IV PUSH (11:15)
--- NOTE | 2025-03-01 11:15 | IVDEFINITY ---
Prior to administration of IV Definity the patient was educated on the risks and benefits of the imaging enhancing agent including potential adverse side effects. The patient verbalized understanding. Allergies were verified. No exclusion criteria were identified and at least one of the following inclusion criteria were met: 1) physician request, 2) patient technically difficult to image (per the [place] [employer] guidelines of two or more segments not discernable within the apical view), or 3) questionable left ventricular function. ?
[2025-03-01] MEDS: MAGNESIUM SULF 2 GM/WATER 50ML 2 GM/50 ML BAG IVPB (11:21)
--- NOTE | 2025-03-01 14:31 | PM.IMPN ---
Progress Note: A&P Assessment and Plan (1) Elevated troponin: Code(s): R79.89 - Other specified abnormal findings of blood chemistry Status: Inactive Assessment and Plan: Elevated troponin to 0.037. Repeat Troponin negative. EKG showing normal sinus with short [place] interval, LVH and prolonged QTc (534). Repeat EKG showing similar findings but the QTc was 480. This could be related to drug use. Echo ordered. Cardiology following and appreciate their input (2) Acute exacerbation of chronic obstructive pulmonary disease: Code(s): J44.1 - Chronic obstructive pulmonary disease with (acute) exacerbation Status: Inactive Assessment and Plan: Shortness of breath for 5 days. Consider mold exposure and reactive airway disease from a moldy home and/or anemia and/or CHF and/or smoking marijuana/tobacco/meth and/or pneumonitis. Saturating well on room air. She had elevated D-dimer and elevated BNP. No ABG. Quad viral screen negative. CTA chest negative for PE but with mild ground glass opacities with bilateral pleural effusions concerning for edema. DuoNebs q.6 hours scheduled. Started on prednisone 60 mg p.o. q.day. She received small dose Lasix at [facility]. Lasix started here. Echo ordered. (3) D-dimer, elevated: Code(s): R79.89 - Other specified abnormal findings of blood chemistry Status: Inactive Assessment and Plan: LE venous doppler negative for DVT As above (4) Crohn's disease: Code(s): K50.90 - Crohn's disease, unspecified, without complications Status: Acute Assessment and Plan: Patient has a hx of Crohns. She will need to have close follow up with a GI doctor so she can resume her Stelara. Suspect she has iron deficiency from chronic blood loss Check iron studies. (5) Exposure to STD: Code(s): Z20.2 - Contact with and (suspected) exposure to infections with a predominantly sexual mode of transmission Status: Inactive Assessment and Plan: Exposure to sexually transmitted infection. Based on patient's report of her partner, likely chlamydia/gonorrhea. Syphilis IgG/IgM negative, HIV 1 and 2 antibody negative. Hepatitis viral panel negative. Chlamydia, gonorrhea, Trichomonas PCR pending. Abnormal urinalysis: Follow-up urine culture and blood cultures Received ceftriaxone 1 g and azithromycin 1 g. (6) Elevated brain natriuretic peptide (BNP) level: Code(s): R79.89 - Other specified abnormal findings of blood chemistry Status: Acute Assessment and Plan: As above (7) Polysubstance abuse: Code(s): F19.10 - Other psychoactive substance abuse, uncomplicated Status: Acute Assessment and Plan: UDS positve for amphetamines and marijuana. Benefits of abstaining from drug use discussed. Care coordination consult (8) Hypertension: Code(s): I10 - Essential (primary) hypertension Status: Acute Assessment and Plan: Patient's blood pressure was reviewed on 03/01 Resumed on Verapamil and lisinopril. Blood pressure remains poorly controlled. Will advance medications. Plan Depression: Abilify, Effexor resumed. Anemia: Noted. Check iron studies. Code status - full DVT prophylaxis - lovenox. Subjective Date/time seen: 03/01/25 14:31 Interval history: 39yo female with a HTN, Crohn's disease, COPD, GERD, PCOS, depression, polysubstance abuse (cig + marijuana smoking, methamphetamines IVDA + smoking) homelessness who presents to [facility] on 02/[facility]25 complaining of shortness of breath for 5 days. Shortness of breath is better. She slept well last night. No drug use for the past 7-8 days. She has chronic abdominal pain. No nausea or vomiting. She has chronic diarrhea and has had bloody stools off and on but more consistent over the past 2 weeks. She has been off her immune modulators for past few months. She has not seen a physician for a long time. She can not take oral iron due to side effects of constipation. Exam Narrative: AF 98.1 151/90 97 16 99% ra Gen - NARD Chest - CTA bilaterally, nml RR CV - RRR S1/S2 Abd - Soft, NT/ND, Positive BS Ext - No pedal edema. 2+ DP pulses Neuro - Alert and oriented. Nonfocal exam. Psych - Nml mood and affect Skin - Warm and dry Objective Data Vital Signs Vital Signs: Vital Signs - 24 hr 02/28/25 19:47 02/28/25 20:00 02/28/25 20:00 Temperature 98 F Pulse Rate 99 102 H Respiratory Rate 16 Blood Pressure 144/94 H Pulse Oximetry 99 Oxygen Delivery Room Air Fraction of Inspired Oxygen 02/28/25 22:00 02/28/25 23:40 03/01/25 00:00 Temperature 98 F Pulse Rate 107 H 104 H Respiratory Rate 16 Blood Pressure 139/83 Pulse Oximetry 97 Oxygen Delivery Room Air Fraction of Inspired Oxygen 03/01/25 00:00 03/01/25 02:00 03/01/25 02:06 Temperature Pulse Rate 100 100 95 Respiratory Rate 24 H Blood Pressure Pulse Oximetry Oxygen Delivery Fraction of Inspired Oxygen 03/01/25 02:14 03/01/25 02:18 03/01/25 03:56 Temperature 98.2 F Pulse Rate 95 95 97 Respiratory Rate 24 H 20 14 Blood Pressure 150/98 H Pulse Oximetry 96 96 Oxygen Delivery Room Air Fraction of Inspired Oxygen 03/01/25 04:00 03/01/25 04:00 03/01/25 06:00 Temperature Pulse Rate 93 95 Respiratory Rate Blood Pressure Pulse Oximetry Oxygen Delivery Room Air Fraction of Inspired Oxygen 03/01/25 07:31 03/01/25 07:31 03/01/25 07:35 Temperature 98.1 F Pulse Rate 91 94 Respiratory Rate 16 18 Blood Pressure 143/81 H Pulse Oximetry 92 99 Oxygen Delivery Room Air Fraction of Inspired Oxygen 03/01/25 07:37 03/01/25 08:30 03/01/25 10:00 Temperature Pulse Rate 91 105 H 107 H Respiratory Rate 16 Blood Pressure Pulse Oximetry Oxygen Delivery Fraction of Inspired Oxygen 03/01/25 11:33 03/01/25 12:00 03/01/25 12:40 Temperature 98.1 F Pulse Rate 100 104 H Respiratory Rate 20 Blood Pressure 156/103 H 151/90 H Pulse Oximetry 98 99 Oxygen Delivery Fraction of Inspired Oxygen 03/01/25 13:31 03/01/25 13:38 Temperature Pulse Rate 105 H 97 Respiratory Rate 16 16 Blood Pressure Pulse Oximetry Oxygen Delivery Fraction of Inspired Oxygen Intake/Output Intake/Output: Intake & Output 02/26/25 02/27/25 02/28/25 03/01/25 23:59 23:59 23:59 23:59 Intake Total 650 Output Total 0 Balance 650 Meds/Results Medications: Active Medications Generic Name Dose Route Start Last Admin Trade Name Freq PRN Reason Stop Dose Admin Acetaminophen 650 mg 02/28/25 18:26 03/01/25 06:11 Acetaminophen 325 Mg Tablet PO 650 mg Q4H PRN Administration Mild Pain (1-3) or Fever Albuterol/Ipratropium 3 ml 03/01/25 02:00 03/01/25 13:31 Ipratropium 0.5 Mg/Albuterol Sulfate 2.5 Mg (Base) Ampul.Neb 3 Ml INHALATION 3 ml Q6HRT JUAN Administration Aripiprazole 15 mg 03/01/25 09:00 03/01/25 08:54 Aripiprazole 5 Mg Tablet PO 15 mg DAILY JUAN Administration Aspirin 81 mg 03/01/25 09:00 03/01/25 08:55 Aspirin 81 Mg Enteric Tablet PO 81 mg QAM JUAN Administration Enoxaparin Sodium 40 mg 03/01/25 09:00 03/01/25 09:07 Enoxaparin 40 Mg/0.4 Ml Syringe SUB-Q 40 mg DAILY JUAN Administration Famotidine 40 mg 03/01/25 09:00 03/01/25 08:54 Famotidine 20 Mg Tablet PO 40 mg DAILY JUAN Administration Furosemide 20 mg 03/01/25 09:00 03/01/25 08:54 Furosemide 20 Mg Tablet PO 20 mg DAILY JUAN Administration Lisinopril 10 mg 03/01/25 09:00 03/01/25 08:55 Lisinopril 10 Mg Tablet PO 10 mg DAILY JUAN Administration Nitroglycerin 0.4 mg 02/28/25 18:27 Nitroglycerin Sl 0.4 Mg Tablet SUBLINGUAL Q5MIN PRN Chest Pain Prednisone 40 mg 03/01/25 08:00 03/01/25 08:55 Prednisone 20 Mg Tablet PO 40 mg DAILY@0800 JUAN Administration Venlafaxine HCl 150 mg 03/01/25 09:00 03/01/25 08:54 Venlafaxine Hcl 75 Mg Tablet PO 150 mg DAILY JUAN Administration Verapamil HCl 120 mg 02/28/25 21:00 02/28/25 20:33 Verapamil Hcl Er 120 Mg Tablet PO 120 mg HS JUAN Administration Radiology Results: ITS Impressions Chest CTA 02/28/25 21:08 IMPRESSION: There is no pulmonary embolism, aortic dissection, pericardial fluid or thoracic aneurysm. Mild groundglass opacity with bilateral pleural effusions suggestive of pulmonary edema. All CT scans at this facility are performed using low dose modulation techniques as appropriate to perform exam including the following: automated exposure control; use of iterative reconstruction technique; adjustment of the mA and/or kV according to patient size (this includes techniques or standardized protocols for targeted exams where dose is matched to indication/reason for exam). Labs Labs: Laboratory Results - last 24 hr 02/28/25 02/28/25 02/28/25 19:47 20:35 22:31 WBC RBC Hgb Hct MCV MCH MCHC RDW Plt Count MPV Immature Gran % (Auto) Neut % (Auto) Lymph % (Auto) [place] % (Auto) Eos % (Auto) Baso % (Auto) Lymph # (Auto) [place] # (Auto) Eos # (Auto) Baso # (Auto) Abs Immat Gran (auto) Absolute Neuts (auto) Absolute Nucleated RBC Band Neutrophils % Nucleated RBC % Platelet Estimate Hypochromasia Anisocytosis Ovalocytes Schistocytes Sodium Potassium Chloride Carbon Dioxide Anion Gap BUN Creatinine 0.82 Estim Creat Clear Calc 89 Estimated GFR > 60 Glucose Calcium Magnesium Total Bilirubin AST ALT Alkaline Phosphatase Troponin I 0.025 D 0.021 Total Protein Albumin Triglycerides Cholesterol LDL Cholesterol Direct HDL Direct Hepatitis A IgM Ab Hep Bs Antigen Hep B Core IgM Ab Hepatitis C Ab Screen Influenza A (RT-PCR) Negative Influenza B (RT-PCR) Negative RSV (RT-PCR) Negative SARS-CoV-2 RNA (RT-PCR) Negative 03/01/25 03:57 WBC 12.8 H RBC 4.46 Hgb 8.4 L Hct 30.1 L MCV 67.5 L MCH 18.8 L MCHC 27.9 L RDW 17.5 H Plt Count 334 MPV 10.6 H Immature Gran % (Auto) 0.6 H Neut % (Auto) 90.8 H Lymph % (Auto) 5.8 L [place] % (Auto) 2.6 Eos % (Auto) 0.0 Baso % (Auto) 0.2 Lymph # (Auto) 0.74 L [place] # (Auto) 0.3 Eos # (Auto) 0.0 Baso # (Auto) 0.0 Abs Immat Gran (auto) 0.08 H Absolute Neuts (auto) 11.6 H Absolute Nucleated RBC 0.000 Band Neutrophils % Not Reportable Nucleated RBC % 0.0 Platelet Estimate Adequate Hypochromasia 1+ Anisocytosis Occasional Ovalocytes 1+ Schistocytes None seen Sodium 137 Potassium 3.9 Chloride 105 Carbon Dioxide 25 Anion Gap 7 BUN 13 Creatinine 0.70 Estim Creat Clear Calc 103 Estimated GFR > 60 Glucose 134 H Calcium 8.9 Magnesium 1.6 Total Bilirubin 0.8 AST 22 ALT 18 Alkaline Phosphatase 108 Troponin I Total Protein 7.2 Albumin 3.6 Triglycerides 106 Cholesterol 183 LDL Cholesterol Direct 81 HDL Direct 72 Hepatitis A IgM Ab Negative Hep Bs Antigen Negative Hep B Core IgM Ab Negative Hepatitis C Ab Screen Negative Influenza A (RT-PCR) Influenza B (RT-PCR) RSV (RT-PCR) SARS-CoV-2 RNA (RT-PCR)
[2025-03-01 17:09] LABS: Iron 21 ug/dL (37-170)
[2025-03-01 17:23] LABS: Percent Iron Saturation 4 % (20-50)
[2025-03-01 17:46] LABS: Thyroid Stimulating Hormone Reflex 0.315 uIU/mL (0.465-4.68)
[2025-03-01 17:50] LABS: Ferritin 11.00 ng/mL (6.24-137)
[2025-03-01 18:44] LABS: Free T4 Free Thyroxine Reflex 1.13 ng/dL (0.78-2.19)
[2025-03-01 19:44] LABS: Total Triiodothyronine (T3) 0.87 NG/ML (0.82-1.58)
[2025-03-01] MEDS: VERAPAMIL HCL ER 120 MG TABLET PO (20:34)
[2025-03-02] VITALS (27 sets, daily range): BP systolic 136–180; BP diastolic 72–116; PULSE 77–112; RESP 14–20; TEMP 36.4–36.8; O2SAT 95–98
[2025-03-02] MEDS: IPRATROPIUM 0.5 MG/ALBUTEROL SULFATE 2.5 MG (BASE) AMPUL.NEB 3 ML INHALATION ×4 (02:33→20:05)
[2025-03-02 04:04] LABS: Hematocrit 28.7 % (37.0-47.0); Hemoglobin 8.2 g/dL (12.0-15.0); Immature Granulocyte Percent A 0.7 % (0-0.5); Lymphocytes Absolute Auto 2.29 K/mm3 (0.9-3.2); Mean Corpuscular HGB Conc 28.6 g/dl (32-36); Mean Corpuscular Hemoglobin 19.1 pg (26-34); Mean Corpuscular Volume 66.9 fl (80-100); Nucleated Red Blood Cells Absolute Auto 0.000 K/mm3 (0.0-0.012); Nucleated Red Blood Cells Perc 0.0 % (0.0-0.2); Platelet Count Result 344 k/mm3 (150-375); Red Blood Count 4.29 M/mm3 (4.2-5.4); White Blood Count 21.5 K/mm3 (4.5-10.0)
[2025-03-02 04:18] LABS: Albumin Level 3.5 g/dL (3.5-5.1); Anion Gap 4 mmol/L (4-12); Blood Urea Nitrogen 16 mg/dL (7-17); Calcium 8.6 mg/dL (8.4-10.2); Carbon Dioxide 27 mmol/L (22-30); Chloride 103 mmol/L (98-107); Estimated CRCL calculation 102 ml/min; Estimated Glomerular Filt Rate > 60; Glucose 102 mg/dL (65-110); Magnesium 2.1 mg/dL (1.6-2.3); Potassium 4.7 mmol/L (3.4-5.0); Sodium 134 mmol/L (137-145)
[2025-03-02 04:32] LABS: Hypochromasia 1+; Microcytosis 1+ (NORMAL); Schistocytes None Seen; Stomatocytes 1+
[2025-03-02] MEDS: FUROSEMIDE 20 MG TABLET PO (08:27)
[2025-03-02] MEDS: FAMOTIDINE 20 MG TABLET 40 MG PO (08:28)
[2025-03-02] MEDS: VENLAFAXINE HCL 75 MG TABLET 150 MG PO (08:28)
[2025-03-02] MEDS: ASPIRIN 81 MG ENTERIC TABLET PO (08:29)
[2025-03-02] MEDS: ENOXAPARIN 40 MG/0.4 ML SYRINGE SUB-Q (08:30)
--- NOTE | 2025-03-02 14:46 | PM.IMPN ---
Progress Note: A&P Assessment and Plan (1) Elevated troponin: Code(s): R79.89 - Other specified abnormal findings of blood chemistry Status: Inactive Assessment and Plan: Elevated troponin to 0.037. Repeat Troponin negative. EKG showing normal sinus with short LA interval, LVH and prolonged QTc (534). Repeat EKG showing similar findings but the QTc was 480. This could be related to drug use. Echo showing EF of 50-55%, increased LV wall thickness, diastolic dysfunction, severe left atrial enlargement, moderate MR, mild TR and mild pulmonary hypertension. Cardiology following and appreciate their input Elevated troponins could be related to elevated blood pressure. Continue to adjust medications to improve blood pressure. (2) Acute exacerbation of chronic obstructive pulmonary disease: Code(s): J44.1 - Chronic obstructive pulmonary disease with (acute) exacerbation Status: Inactive Assessment and Plan: Shortness of breath for 5 days. Consider mold exposure and reactive airway disease from a moldy home and/or anemia and/or CHF and/or smoking marijuana/tobacco/meth and/or pneumonitis. Patient remains on room air. Covid, influenza and RSV PCR negative. She had elevated D-dimer but CTA chest negative for PE but with mild ground glass opacities with bilateral pleural effusions concerning for edema. LE venous doppler negative for DVT. DuoNebs q.6 hours scheduled. Started on prednisone daily BNP elevated. Echo as above. She received small dose Lasix at [facility]. Oral Lasix started here. Lungs clear now. Stop prednisone (3) D-dimer, elevated: Code(s): R79.89 - Other specified abnormal findings of blood chemistry Status: Inactive Assessment and Plan: As above (4) Crohn's disease: Code(s): K50.90 - Crohn's disease, unspecified, without complications Status: Acute Assessment and Plan: Patient has a hx of Crohns. She will need to have close follow up with a GI doctor so she can resume her Stelara. Iron studies consistent with iron deficiency anemia. Suspect she has iron deficiency from chronic blood loss from here GI bleeding Hematochezia better possibly related to steroids. Replace iron IV. She is agreeable for oral iron QOD Monitor HH. (5) Exposure to STD: Code(s): Z20.2 - Contact with and (suspected) exposure to infections with a predominantly sexual mode of transmission Status: Inactive Assessment and Plan: Patient exposed to sexually transmitted infection. Based on patient's report of her partner, likely chlamydia/gonorrhea. Syphilis IgG/IgM negative, HIV 1 and 2 antibody negative. Hepatitis viral panel negative. Chlamydia, gonorrhea, Trichomonas PCR pending. Abnormal urinalysis: Follow-up urine culture and blood cultures Received ceftriaxone 1 g and azithromycin 1 g once (6) Elevated brain natriuretic peptide (BNP) level: Code(s): R79.89 - Other specified abnormal findings of blood chemistry Status: Acute Assessment and Plan: As above (7) Polysubstance abuse: Code(s): F19.10 - Other psychoactive substance abuse, uncomplicated Status: Acute Assessment and Plan: UDS positve for amphetamines and marijuana. Benefits of abstaining from drug use discussed. Care coordination consult (8) Hypertension: Code(s): I10 - Essential (primary) hypertension Status: Acute Assessment and Plan: Patient's blood pressure was reviewed on 03/02 Resumed on Verapamil and lisinopril. Lisinopril was advanced Blood pressure remains poorly controlled. Will advance medications again. Plan Depression: Abilify, Effexor resumed. Mood stable Anemia: Noted. Iron deficiency felt related to hematochezia. IV iron started. Agreeable to take oral iron so this was added. Leukocytosis - WBC up to 21K but felt related to steroids. No evidence of infection but still waiting for culture results. Monitor WBC. Stop Prednisone Code status - full DVT prophylaxis - lovenox. Subjective Date/time seen: 03/02/25 14:46 Interval history: 39yo female with a HTN, Crohn's disease, COPD, GERD, PCOS, depression, polysubstance abuse (cig + marijuana smoking, methamphetamines IVDA + smoking) homelessness who presents [facility] on 02[facility] complaining of shortness of breath for 5 days. No problems overnight. Eating well. No nausea or vomiting. No chest pain or shortness of breath. No wheezing. No abdominal pain. Diarrhea has persisted but she is noticing less blood in her stool. Exam Narrative: AF 97.8 165/111 105 20 97% ra Gen - NARD Chest - CTA bilaterally, nml RR CV - RRR S1/S2. Telemetry showing no significant dysrhythmias Abd - Soft, NT/ND, Positive BS Ext - No pedal edema. 2+ DP pulses Neuro - Alert and oriented. Nonfocal exam. Hoarse voice Psych - Nml mood and affect Skin - Warm and dry Objective Data Vital Signs Vital Signs: Vital Signs - 24 hr 03/01/25 15:55 03/01/25 16:00 03/01/25 18:00 Temperature 98.1 F Pulse Rate 102 H 105 H 108 H Respiratory Rate 18 Blood Pressure 169/99 H Pulse Oximetry 97 Oxygen Delivery Fraction of Inspired Oxygen 03/01/25 20:00 03/01/25 20:00 03/01/25 20:00 Temperature 98.2 F Pulse Rate 106 H 107 H Respiratory Rate 15 Blood Pressure 151/88 H Pulse Oximetry 99 Oxygen Delivery Room Air Fraction of Inspired Oxygen 03/01/25 21:44 03/01/25 21:45 03/01/25 22:00 Temperature Pulse Rate 103 H 103 H 109 H Respiratory Rate 18 16 Blood Pressure Pulse Oximetry 98 Oxygen Delivery Room Air Fraction of Inspired Oxygen 21 03/02/25 00:00 03/02/25 00:00 03/02/25 00:00 Temperature 98.2 F Pulse Rate 112 H 109 H Respiratory Rate 16 Blood Pressure 149/93 H Pulse Oximetry 98 Oxygen Delivery Room Air Fraction of Inspired Oxygen 03/02/25 02:00 03/02/25 02:33 03/02/25 03:49 Temperature 97.9 F Pulse Rate 105 H 108 H 108 H Respiratory Rate 18 16 Blood Pressure 144/92 H Pulse Oximetry 98 Oxygen Delivery Fraction of Inspired Oxygen 03/02/25 04:00 03/02/25 04:00 03/02/25 06:00 Temperature Pulse Rate 100 98 Respiratory Rate Blood Pressure Pulse Oximetry Oxygen Delivery Room Air Fraction of Inspired Oxygen 03/02/25 07:59 03/02/25 08:00 03/02/25 08:00 Temperature 97.7 F Pulse Rate 102 H 106 H Respiratory Rate 20 Blood Pressure 180/116 H Pulse Oximetry 97 Oxygen Delivery Room Air Fraction of Inspired Oxygen 03/02/25 08:17 03/02/25 08:17 03/02/25 08:24 Temperature Pulse Rate 94 94 95 Respiratory Rate 20 20 20 Blood Pressure Pulse Oximetry 98 Oxygen Delivery Room Air Fraction of Inspired Oxygen 03/02/25 10:00 03/02/25 11:34 03/02/25 14:18 Temperature 97.8 F Pulse Rate 101 H 95 100 Respiratory Rate 18 20 Blood Pressure 165/111 H Pulse Oximetry 97 97 Oxygen Delivery Room Air Fraction of Inspired Oxygen 03/02/25 14:18 03/02/25 14:30 Temperature Pulse Rate 100 105 H Respiratory Rate 20 20 Blood Pressure Pulse Oximetry Oxygen Delivery Fraction of Inspired Oxygen Intake/Output Intake/Output: Intake & Output 02/27/25 02/28/25 03/01/25 03/02/25 23:59 23:59 23:59 23:59 Intake Total 1330 840 Output Total 0 Balance 1330 840 Meds/Results Medications: Active Medications Generic Name Dose Route Start Last Admin Trade Name Freq PRN Reason Stop Dose Admin Acetaminophen 650 mg 02/28/25 18:26 03/01/25 20:34 Acetaminophen 325 Mg Tablet PO 650 mg Q4H PRN Administration Mild Pain (1-3) or Fever Albuterol/Ipratropium 3 ml 03/01/25 02:00 03/02/25 14:17 Ipratropium 0.5 Mg/Albuterol Sulfate 2.5 Mg (Base) Ampul.Neb 3 Ml INHALATION 3 ml Q6HRT JUAN Administration Aripiprazole 15 mg 03/01/25 09:00 03/02/25 08:29 Aripiprazole 5 Mg Tablet PO 15 mg DAILY JUAN Administration Aspirin 81 mg 03/01/25 09:00 03/02/25 08:29 Aspirin 81 Mg Enteric Tablet PO 81 mg QAM JUAN Administration Enoxaparin Sodium 40 mg 03/01/25 09:00 03/02/25 08:30 Enoxaparin 40 Mg/0.4 Ml Syringe SUB-Q 40 mg DAILY JUAN Administration Famotidine 40 mg 03/01/25 09:00 03/02/25 08:28 Famotidine 20 Mg Tablet PO 40 mg DAILY JUAN Administration Furosemide 20 mg 03/01/25 09:00 03/02/25 08:27 Furosemide 20 Mg Tablet PO 20 mg DAILY JUAN Administration Lisinopril 20 mg 03/02/25 09:00 03/02/25 08:28 Lisinopril 20 Mg Tablet PO 20 mg DAILY JUAN Administration Nitroglycerin 0.4 mg 02/28/25 18:27 Nitroglycerin Sl 0.4 Mg Tablet SUBLINGUAL Q5MIN PRN Chest Pain Prednisone 40 mg 03/01/25 08:00 03/02/25 08:28 Prednisone 20 Mg Tablet PO 40 mg DAILY@0800 JUAN Administration Venlafaxine HCl 150 mg 03/01/25 09:00 03/02/25 08:28 Venlafaxine Hcl 75 Mg Tablet PO 150 mg DAILY JUAN Administration Verapamil HCl 120 mg 02/28/25 21:00 03/01/25 20:34 Verapamil Hcl Er 120 Mg Tablet PO 120 mg HS JUAN Administration Radiology Results: ITS Impressions Chest CTA 02/28/25 21:08 IMPRESSION: There is no pulmonary embolism, aortic dissection, pericardial fluid or thoracic aneurysm. Mild groundglass opacity with bilateral pleural effusions suggestive of pulmonary edema. All CT scans at this facility are performed using low dose modulation techniques as appropriate to perform exam including the following: automated exposure control; use of iterative reconstruction technique; adjustment of the mA and/or kV according to patient size (this includes techniques or standardized protocols for targeted exams where dose is matched to indication/reason for exam). Venous Doppler Study 03/01/25 14:51 Impression: Negative for DVT. Labs Labs: Laboratory Results - last 24 hr 03/01/25 03/02/25 03:57 03:33 WBC 21.5 H RBC 4.29 Hgb 8.2 L Hct 28.7 L MCV 66.9 L MCH 19.1 L MCHC 28.6 L RDW 17.7 H Plt Count 344 MPV 10.4 Immature Gran % (Auto) 0.7 H Neut % (Auto) 84.3 H Lymph % (Auto) 10.6 L [place] % (Auto) 4.2 Eos % (Auto) 0.0 Baso % (Auto) 0.2 Lymph # (Auto) 2.29 [place] # (Auto) 0.9 H Eos # (Auto) 0.0 Baso # (Auto) 0.1 Abs Immat Gran (auto) 0.15 H Absolute Neuts (auto) 18.1 H Absolute Nucleated RBC 0.000 Band Neutrophils % Not Reportable Nucleated RBC % 0.0 Platelet Estimate Adequate Hypochromasia 1+ Microcytosis 1+ Stomatocytes 1+ Schistocytes None seen Sodium 134 L Potassium 4.7 Chloride 103 Carbon Dioxide 27 Anion Gap 4 BUN 16 Creatinine 0.71 Estim Creat Clear Calc 102 Estimated GFR > 60 Glucose 102 Calcium 8.6 Phosphorus 3.7 Magnesium 2.1 Iron 21 L TIBC 501 H % Saturation 4 L Ferritin 11.00 Albumin 3.5 TSH (Reflex) 0.315 L Free T4 1.13 Total T3 0.87
[2025-03-02] MEDS: VERAPAMIL HCL 180 MG ER TABLET PO (20:38)
[2025-03-03] VITALS (18 sets, daily range): BP systolic 133–169; BP diastolic 78–102; PULSE 71–94; RESP 15–20; TEMP 36.7–36.8; O2SAT 95–99
[2025-03-03] MEDS: IPRATROPIUM 0.5 MG/ALBUTEROL SULFATE 2.5 MG (BASE) AMPUL.NEB 3 ML INHALATION ×3 (02:23→13:43)
[2025-03-03 04:20] LABS: Hematocrit 32.0 % (37.0-47.0); Hemoglobin 9.0 g/dL (12.0-15.0); Immature Granulocyte Percent A 1.0 % (0-0.5); Lymphocytes Absolute Auto 2.46 K/mm3 (0.9-3.2); Mean Corpuscular HGB Conc 28.1 g/dl (32-36); Mean Corpuscular Hemoglobin 18.8 pg (26-34); Mean Corpuscular Volume 66.9 fl (80-100); Nucleated Red Blood Cells Absolute Auto 0.000 K/mm3 (0.0-0.012); Nucleated Red Blood Cells Perc 0.0 % (0.0-0.2); Platelet Count Result 356 k/mm3 (150-375); Red Blood Count 4.78 M/mm3 (4.2-5.4); White Blood Count 18.0 K/mm3 (4.5-10.0)
[2025-03-03 04:41] LABS: Albumin Level 3.6 g/dL (3.5-5.1); Anion Gap 6 mmol/L (4-12); Blood Urea Nitrogen 18 mg/dL (7-17); Calcium 8.6 mg/dL (8.4-10.2); Carbon Dioxide 28 mmol/L (22-30); Chloride 100 mmol/L (98-107); Estimated CRCL calculation 93 ml/min; Estimated Glomerular Filt Rate > 60; Glucose 96 mg/dL (65-110); Magnesium 2.3 mg/dL (1.6-2.3); Potassium 4.6 mmol/L (3.4-5.0); Sodium 134 mmol/L (137-145)
[2025-03-03 04:53] LABS: Anisocytosis Occasional; Hypochromasia 1+; Ovalocytes 1+; Schistocytes None Seen
[2025-03-03] MEDS: ASPIRIN 81 MG ENTERIC TABLET PO (09:17)
[2025-03-03] MEDS: FUROSEMIDE 20 MG TABLET PO (09:17)
[2025-03-03] MEDS: FAMOTIDINE 20 MG TABLET 40 MG PO (09:17)
[2025-03-03] MEDS: VENLAFAXINE HCL 75 MG TABLET 150 MG PO (09:17)
[2025-03-03] MEDS: ENOXAPARIN 40 MG/0.4 ML SYRINGE SUB-Q (09:18)
[2025-03-03] MEDS: FERROUS SULFATE 325 MG TABLET PO (09:18)
--- NOTE | 2025-03-03 14:41 | PM.DS ---
DS: Admitting Diagnosis Discharge Date 03/03/25 Admitting Diagnosis Shortness of breath DS: Discharge Diagnosis Discharge Diagnosis (1) Elevated troponin: Code(s): R79.89 - Other specified abnormal findings of blood chemistry Status: Inactive (2) Acute exacerbation of chronic obstructive pulmonary disease: Code(s): J44.1 - Chronic obstructive pulmonary disease with (acute) exacerbation Status: Inactive (3) D-dimer, elevated: Code(s): R79.89 - Other specified abnormal findings of blood chemistry Status: Inactive (4) Crohn's disease: Code(s): K50.90 - Crohn's disease, unspecified, without complications Status: Acute (5) Exposure to STD: Code(s): Z20.2 - Contact with and (suspected) exposure to infections with a predominantly sexual mode of transmission Status: Inactive (6) Elevated brain natriuretic peptide (BNP) level: Code(s): R79.89 - Other specified abnormal findings of blood chemistry Status: Acute (7) Polysubstance abuse: Code(s): F19.10 - Other psychoactive substance abuse, uncomplicated Status: Acute (8) Hypertension: Code(s): I10 - Essential (primary) hypertension Status: Acute DS: Summary Hospital Course Reason for hospitalization: 39yo female with a HTN, Crohn's disease, COPD, GERD, PCOS, depression, polysubstance abuse (cig + marijuana smoking, methamphetamines IVDA + smoking) homelessness who presents to [facility] on 02/[facility]/2025 complaining of shortness of breath for 5 days. Please see H&P for details. Hospital Course: Patient was found to have an elevated troponin to 0.037. Repeat Troponin negative. EKG showing normal sinus with short VA interval, LVH and prolonged QTc (534). Repeat EKG showing similar findings but the QTc was 480. This could be related to drug use. Echo showing EF of 50-55%, increased LV wall thickness, diastolic dysfunction, severe left atrial enlargement, moderate MR, mild TR and mild pulmonary hypertension. Cardiology following and appreciate their input. Elevated troponin could be related to elevated blood pressure. Patient's blood pressure was monitored closely. We continued to adjust medications to improve blood pressure. For her shortness of breath, we considered mold exposure and reactive airway disease from a moldy home and/or anemia and/or CHF and/or smoking marijuana/tobacco/meth and/or pneumonitis. Patient remained on room air. Covid, influenza and RSV PCR negative. She had elevated D-dimer but CTA chest negative for PE but with mild ground glass opacities with bilateral pleural effusions concerning for edema. LE venous doppler negative for DVT. DuoNebs q.6 hours scheduled. Started on prednisone daily. BNP was elevated and she received a small dose Lasix at [facility]. Oral Lasix started here. Patient has a hx of Crohns. She will need to have close follow up with a GI doctor so she can resume her Stelara. Iron studies consistent with iron deficiency anemia. Suspect she has iron deficiency from chronic blood loss from here GI bleeding. Hematochezia resolved. Iron IV daily x2 days given. She was agreeable for oral iron which was started. Patient was exposed to sexually transmitted infection. Based on patient's report of her partner, likely chlamydia/gonorrhea. Syphilis IgG/IgM negative, HIV 1 and 2 antibody negative. Hepatitis viral panel negative. Chlamydia was negative but she was positive for gonorrhea and Trichomonas. Urine test was negaitve. She received ceftriaxone 1 gram and azithromycin 1 gram. Plan for home with metronidazole. UDS was positive for amphetamines and marijuana. Benefits of abstaining from drug use discussed. Care coordination consulted. Patient with depression. Mood stable with resuming her Abilify, Effexor. Leukocytosis noted with WBC up to 21K but felt related to steroids. UCx was negative. BCx NGTD. No evidence of infection. WBC did trend down. She overall did well and was able to be discharged on 03/03/25. Discharge instructions discussed including side effects of medications. All questions answered. Status at Discharge Cognitive/behavioral status at discharge: stable Time Spent with Patient Time attestation: Total time spent providing and/or coordinating discharge services: 35 minutes Time spent: Greater than 30 minutes Exam Narrative: AF 98.3 152/78 94 18 99% ra Gen - NARD Chest - CTA bilaterally, nml RR CV - RRR S1/S2. Telemetry showing PVCs Abd - Soft, NT/ND, Positive BS Ext - No pedal edema Psych - Nml mood and affect Skin - Warm and dry DS: Data Data Completed and Pending Labs on day of discharge: Labs from last 24 hours 03/03/25 04:04 WBC 18.0 H RBC 4.78 Hgb 9.0 L Hct 32.0 L MCV 66.9 L MCH 18.8 L MCHC 28.1 L RDW 17.7 H Plt Count 356 MPV 10.3 Immature Gran % (Auto) 1.0 H Neut % (Auto) 79.4 H Lymph % (Auto) 13.6 L [place] % (Auto) 5.5 Eos % (Auto) 0.2 Baso % (Auto) 0.3 Lymph # (Auto) 2.46 [place] # (Auto) 1.0 H Eos # (Auto) 0.0 Baso # (Auto) 0.1 Abs Immat Gran (auto) 0.18 H Absolute Neuts (auto) 14.3 H Absolute Nucleated RBC 0.000 Band Neutrophils % Not Reportable Nucleated RBC % 0.0 Platelet Estimate Adequate Hypochromasia 1+ Anisocytosis Occasional Ovalocytes 1+ Schistocytes None seen Sodium 134 L Potassium 4.6 Chloride 100 Carbon Dioxide 28 Anion Gap 6 BUN 18 H Creatinine 0.79 Estim Creat Clear Calc 93 Estimated GFR > 60 Glucose 96 Calcium 8.6 Phosphorus 4.4 Magnesium 2.3 Albumin 3.6 Discharge Plan Discharge Attending physician on discharge: Mateusz Nelson Consulting providers: Lacy Silva Discharging Clinician: Mateusz Nelson Anticipated Discharge Date/Time: 03/03/25 14:53 Patient Disposition: Home Activity: as tolerated Diet: heart healthy Discharge Instructions: Please protect yourself from sexually transmitted diseases. Stop using all illegal drug use. Check blood pressure 1 to 2 times a day. Record and bring into your doctor for review. Call your doctor if your blood pressure is greater than 180/110. Please complete your antibiotic course even if you are starting to feel well. Take precautions to avoid falls. Rise slowly from a lying or sitting position. Pause before standing or walking. Contact your doctor or call 911 and come to the Emergency Room if you have fevers or other worrisome symptoms. Follow-up with your primary care provider in 1-2 weeks. Please call for appointment. Follow-up with a GI doctor in 1-2 weeks and talk with them about resuming your Stelara Thank you for using [facility] for your health care needs. Patient Instructions: Antibiotic Form, Suicide Prevention (DC) Patient Language: Greenlandic Stand Alone Forms: General Discharge Information Follow-up/Referrals: PHYSICIAN,BUSINESS UNIT MANAGER [Primary Care Provider, Internal Medicine] - Call for Appointment Discharge Medications: New ferrous sulfate 325 mg (65 mg iron) Tablet,Delayed Release (Dr/Ec) 325 mg PO DAILY Qty: 30 0RF omeprazole 20 mg capsule,delayed release(DR/EC) 20 mg PO DAILY Qty: 30 0RF lisinopril 40 mg tablet 40 mg PO DAILY Qty: 30 0RF verapamil 180 mg Capsule,Ext Rel. Pellets 24 Hr 180 mg PO HS Qty: 30 0RF albuterol sulfate [Ventolin HFA] 90 mcg/actuation HFA aerosol inhaler 2 puff inhalation QID PRN (Reason: shortness of breath or wheezing) Qty: 6.7 0RF metronidazole 500 mg tablet 500 mg PO BID 7 Days Qty: 14 0RF Continued ustekinumab [Stelara] 45 mg/0.5 mL Solution 45 mg SUBCUT ONCE Rx Instructions: every 8 weeks venlafaxine 75 mg Tablet 150 mg PO DAILY Qty: 60 0RF aripiprazole [Abilify] 15 mg tablet 15 mg PO DAILY Qty: 30 0RF Discontinued lisinopril 10 mg Tablet 10 mg PO DAILY verapamil 120 mg tablet extended release 120 mg PO HS famotidine 40 mg tablet 40 mg PO DAILY Date of admission: 03/01/25 14:50 Primary Care Provider: PHYSICIAN,BUSINESS UNIT MANAGER Admitting Provider: Francis Medrano Attending physician on admission: Francis Medrano Condition: Stable Hospitalist MIPS Heart Failure (Exclusion) Patient has history of Heart Transplant or Left Ventricular Assistive Device?: No IF YES, STOP HERE Heart Failure (Qualifier) Patient has current or prior documentation of LVEF less than or equal to 40%, or mod/servere depressed LVSF?: No IF NO, STOP HERE
--- NOTE | 2025-03-03 16:59 | PC.NURSE ---
On 03/03/25, the CHILD AND FAMILY COUNSELOR, [Tc Biggs ], provided care and completed [facility] documentation on this patient. I have reviewed the CHILD AND FAMILY COUNSELOR's documentation and agree with the findings.
== END 2025-03-03 16:27 | disposition home or self-care (01) | DRG 191 ==
PROVIDERS: General Practice; Student in an Organized Health Care Education/Training Program; Admitting Provider Internal Medicine; Visit Provider Internal Medicine
DX: J44.1 Chronic obstructive pulmonary disease with (acute) exacerbation (principal); A54.9 Gonococcal infection, unspecified; K50.90 Crohn's disease, unspecified, without complications; I24.89 Other forms of acute ischemic heart disease; Z59.00 Homelessness unspecified; Z77.120 Contact with and (suspected) exposure to mold (toxic); A59.9 Trichomoniasis, unspecified; I10 Essential (primary) hypertension; Z20.822 Contact with and (suspected) exposure to COVID-19; D50.0 Iron deficiency anemia secondary to blood loss (chronic); K21.9 Gastro-esophageal reflux disease without esophagitis; F32.A Depression, unspecified; Z91.148 Patient's other noncompliance with medication regimen for other reason; F19.10 Other psychoactive substance abuse, uncomplicated; F12.90 Cannabis use, unspecified, uncomplicated; F17.290 Nicotine dependence, other tobacco product, uncomplicated; F17.210 Nicotine dependence, cigarettes, uncomplicated
CPT/HCPCS: 36415; 71275; 80053; 80061; 80069; 80074; 82565; 82728; 83540; 83550; 83735; 84439; 84443; 84480; 84484; 85025; 87637; 93005; 93970; 94640; A9270; C8929; G0378; G0379; J1650; J3475; J7512; Q9957; Q9967